=== PATIENT | female | born 1950 | race Caucasian/White ===

== ENCOUNTER 2016-04-23 23:33 | Inpatient (IN) | payer OTHER ==
[~2016-04-23] VITALS: Ht 91.4 cm; Wt 78.4 kg
[2016-04-23 23:49] VITALS: Ht 91.4 cm; Wt 78.4 kg
[2016-04-24] VITALS (7 sets, daily range): BP systolic 141–164; BP diastolic 69–95; PULSE 64–73; RESP 17–20
[2016-04-24] MEDS ORDERED: NITROGLYCERIN (SL) 0.4 MG TAB SL ONE (01:00)
[2016-04-24 01:22] LABS: BASOPHILS % 0.4 % (0.0-2.0); EOSINOPHILS # 0.1 10^3/ul (0.0-0.5); EOSINOPHILS % 1.3 % (0.0-7.0); HEMATOCRIT 37.9 % (37.0-47.0); HEMOGLOBIN 12.4 g/dl (12.0-16.0); LYMPHOCYTES # 2.3 10^3/ul (0.8-2.9); LYMPHOCYTES % 38.8 % (15.0-51.0); MEAN CORPUSCULAR HGB CONC 32.7 g/dl (32.0-37.0); MEAN CORPUSCULAR VOLUME 79.6 fl (82.0-101.0); MEAN PLATELET VOLUME 13.5 fl (7.4-10.4); MONOCYTE # 0.5 10^3/ul (0.3-0.9); MONOCYTES % 8.4 % (0.0-11.0); NEUTROPHIL # 3.1 10^3/ul (1.6-7.5); NEUTROPHILS % 51.1 % (39.0-77.0); PLATELET COUNT 163 10^3/UL (140-440); RED BLOOD COUNT 4.76 10^6/ul (4.20-5.40); RED CELL DISTRIBUTION WIDTH 16.9 % (11.5-14.5); UNCORRECTED WBC 6.1 10^3/ul (4.8-10.8); WHITE BLOOD COUNT 6.1 10^3/ul (4.8-10.8)
[2016-04-24 01:27] LABS: CONDITION 1; LH ANALYZER COMMENTS 1; SUSPECT 1
[2016-04-24 01:31] LABS: CHLORIDE 102 mmol/L (97-110); INR 1.09; PARTIAL THROMBOPLASTIN TIME 28.6 Sec (25.0-35.0); POTASSIUM 3.9 mmol/L (3.5-5.1); PROTIME 14.1 Sec (12.2-14.2); PT RATIO 1.1; SODIUM 142 mmol/L (135-144)
[2016-04-24 01:34] LABS: ANION GAP 14 (8-16); BLOOD UREA NITROGEN 20 mg/dl (7-20); CARBON DIOXIDE 30 mmol/L (21-31)
[2016-04-24 01:35] LABS: CALCIUM 9.1 mg/dl (8.4-10.2); GLUCOSE 95 mg/dl (70-220)
--- NOTE | 2016-04-24 01:53 | RADRPT ---
PROCEDURE: XR Chest. CLINICAL INDICATION: Chest pain TECHNIQUE: AP Portable chest. COMPARISON: No pertinent prior examinations were submitted for comparison. FINDINGS: There is mild cardiomegaly. The lungs are clear. The osseous structures are unremarkable. IMPRESSION: No acute findings. RPTAT: HIKT .Kobi Sellers MD, Date Time Electronically viewed and signed by .Kobi Sellers MD, on 04/24/2016 01:52 .T/
[2016-04-24 01:56] LABS: TROPONIN-I < 0.012 ng/ml (0.00-0.12)
[2016-04-24] MEDS ORDERED: ACETAMINOPHEN 325 MG TAB PO PRN ×2 (03:00→16:00)
[2016-04-24] MEDS ORDERED: ONDANSETRON 4 MG INJ IV PRN (03:00)
--- NOTE | 2016-04-24 03:03 | ERA ---
ER Documentation Chief Complaint Date/Time DATE: 04/24/16 TIME: 03:01 Chief Complaint squeeezing like chest pain x 2 days, intermittent pain HPI This is a 65-year-old female presents to the emergency room for evaluation of chest pain. The patient had intermittent chest pain for 2 days which she describes as an achy pain as squeezing like sensation in the center of her chest with radiation into her left arm. The patient does state that she has a history of high blood pressure, high cholesterol and cancer. The patient denies any palpitations or shortness of breath. She denies any aggravating or relieving factors for her pain and came to the ER today for evaluation. ROS All systems reviewed and are negative except as per history of present illness. Allergies Allergies: Coded Allergies: No Known Allergy (Unverified , 04/23/16) PMhx/Soc History of Surgery: Yes Hx Cardiac Disorders: Yes (htn, high cholesterol) Hx Miscellaneous Medical Probl: Yes (breast CA w/ chemo resolved 8 yrs ago) Hx Alcohol Use: No Hx Substance Use: No Hx Tobacco Use: No Smoking Status: Unknown if ever smoked Physical Exam Vitals Vital Signs Date Time Temp Pulse Resp B/P Pulse Ox O2 Delivery O2 Flow Rate FiO2 04/23/16 23:49 97.8 81 20 149/78 100 Physical Exam INITIAL VITAL SIGNS: Reviewed by me GENERAL: The patient is well developed and appropriate for usual state of health in no apparent distress HEENT: Pupils equal, round, and reactive to light. EOMI. There is no scleral icterus. NECK: C-spine is soft and supple, there is no meningismus. There is no cervical lymphadenopathy. LUNGS: Clear to auscultation bilaterally. There are no rales, wheezes or rhonchi. HEART: Regular rate and rhythm, no murmurs, clicks, rubs or gallops. ABDOMEN: Soft, non-tender, non-distended. There are bowel sounds in all four quadrants. No rebound or guarding. EXTREMITIES: There is no peripheral cyanosis or edema. No focal swelling or erythema. NEUROLOGICAL: The patient moves all four extremities with 5/5 strength. Cranial nerves II - XII are intact. Normal gait. Alert and oriented SKIN: There is no apparent rash or petechiae. HEME/LYMPHATIC: There is no evidence of excessive bruising or lymphedema. PSYCHIATRIC: The patient does not appear anxious or depressed. Result Diagram: 04/24/1610104/24/16 0102 Results 24 hrs Laboratory Tests Test 04/24/16 01:02 Activated Partial Thromboplast Time 28.6Sec Anion Gap 14 Basophils # 0.010^3/ul Basophils % 0.4% Blood Morphology Comment Blood Urea Nitrogen 20mg/dl Calcium Level 9.1mg/dl Carbon Dioxide Level 30mmol/L Chloride Level 102mmol/L Creatinine 0.70mg/dl Eosinophils # 0.110^3/ul Eosinophils % 1.3% Glucose Level 95mg/dl Hematocrit 37.9% Hemoglobin 12.4g/dl INR International Normalized Ratio 1.09 Lymphocytes # 2.310^3/ul Lymphocytes % 38.8% Mean Corpuscular Hemoglobin 26.0pg Mean Corpuscular Hemoglobin Concent 32.7g/dl Mean Corpuscular Volume 79.6fl Mean Platelet Volume 13.5fl Monocytes # 0.510^3/ul Monocytes % 8.4% Neutrophils # 3.110^3/ul Neutrophils % 51.1% Nucleated Red Blood Cells # 0.010^3/ul Nucleated Red Blood Cells % 0.0/100WBC Platelet Count 99670^3/UL Potassium Level 3.9mmol/L Prothrombin Time 14.1Sec Prothrombin Time Ratio 1.1 Red Blood Count 4.7610^6/ul Red Cell Distribution Width 16.9% Sodium Level 142mmol/L Troponin I < 0.012ng/ml White Blood Count 6.110^3/ul Current Medications Medications (Trade) Dose Ordered Sig/Neelima Route PRN Reason Start Time Stop Time Status Last Admin Dose Admin Nitroglycerin (Nitroglycerin (Sl Tab) 0.4 Mg) 1 tab ONCE ONCE SL 04/24/16 01:00 04/24/16 01:01 DC 04/24/16 01:04 Procedures/MDM EKG: Rate/Rhythm: [Normal Sinus Rhythm] QRS, ST, T-waves: [No changes consistent w/ acute ischemia] Impression: [No evidence of ischemia or arrhythmia] Chest X-ray 1V Interpreted by me: Soft Tissue: No acute abnormalities Bones: No acute abnormalities Mediastinum/Cardiac Silhouette/Lungs: [No acute abnormalities] This 65-year-old female presents to the emergency room for evaluation of chest pain. This patient had a troponin drawn which was normal, EKG which is nonischemic. Chest x-ray is normal. However, this patient does have history of hypertension, hyperlipidemia, and given her age she will be placed in for admission at this time. Her pulse ox is 100% on room air, her pulse is 61 bpm and my suspicion for PE is low at this time given her vital signs. She will be placed in for admission to a telemetry floor under the care of her panel physician, Dr. Sharpe Departure Diagnosis: Primary Impression: Chest pain Condition: Stable BOBBY COLBERT DO Apr 24, 2016 03:03
[2016-04-24] MEDS ORDERED: LISI10TA2 PO (05:04)
[2016-04-24] MEDS ORDERED: CARV6.2579 PO (05:04)
[2016-04-24] MEDS ORDERED: SIMV10TA6 PO (05:04)
[2016-04-24] MEDS ORDERED: ASPI-535 PO (05:04)
[2016-04-24] MEDS ORDERED: FURO20TA3 PO (05:04)
[2016-04-24] MEDS ORDERED: morphine 2 MG INJ IV PRN (05:30)
[2016-04-24] MEDS ORDERED: NITROGLYCERIN (SL) 0.4 MG TAB SL PRN (05:30)
[2016-04-24] MEDS ORDERED: FUROSEMIDE 20 MG TAB PO SCH (06:00)
--- NOTE | 2016-04-24 07:26 | HP ---
DATE OF ADMISSION: 04/24/2016 CHIEF COMPLAINT: Chest pain. IDENTIFICATION: The patient is a 65-year-old female with a history of hypertension, dyslipidemia, a nd breast cancer status post chemo 8 years ago who presented to the emergency department with chest pain. The chest pain is located in the mid chest as well as left-sided with radiation to the left a rm and described as far pain and tightness. It has been going on for 2 days. She denied any associ ated shortness of breath, nausea, vomiting, or diaphoresis. When the patient presented to the ER, blood pressure was 149/78, heart rate 81, respiratory rate 20, temperature 97.8, oxygen saturation 100% on room air. Her CBC and BMP are within normal limits, an d first troponin is negative. EKG with normal sinus rhythm with no ST-T wave abnormalities. She wa s given nitroglycerin, Tylenol, and Zofran while she was in the ER. REVIEW OF SYSTEMS: A 12-point review was performed and negative except as mentioned in HPI. PAST MEDICAL HISTORY: As per HPI. PAST SURGICAL HISTORY: Denies. SOCIAL HISTORY: Denied a history of tobacco, alcohol, or illicit drug use. ALLERGIES: NO KNOWN DRUG ALLERGIES. HOME MEDICATIONS: 1. Coreg. 2. Lisinopril. 3. Zocor. 4. Aspirin. 5. Lasix. PHYSICAL EXAMINATION: VITAL SIGNS: Stable. GENERAL: No acute distress, looks comfortable, answering questions appropriately, able to speak in full sentences. HEENT: No obvious head deformity. Pupils are reactive to light. Extraocular muscles intact. CARDIOVASCULAR: Regular rate and rhythm. No extra sounds. LUNGS: Clear. ABDOMEN: Soft, nontender, nondistended. Positive bowel sounds. EXTREMITIES: No edema. NEUROLOGIC: No focal deficits. LABORATORY: CBC and BMP are within normal limits. First troponin is negative. IMAGING: Chest x-ray with no acute findings. IMPRESSION 1. Chest pain, need to rule out acute coronary syndrome. 2. History of hypertension. 3. History of dyslipidemia. 4. History of breast cancer status post chemo 8 years ago. PLAN: Admit to telemetry unit. Trend troponin. We will obtain a 2D echo and cardiology consult. We will continue her home medications which include ISMA inhibitor, beta analilia, statin, and aspirin . She will also receive as needed nitro and morphine and will be placed on oxygen. We will check a n A1c and fasting lipids and TSH in the morning. For her breast cancer history, she is status post chemo 8 years ago, and she will follow up as an outpatient when discharged. Further workup and management per clinical course. Dictated By: JESSIE PANCHAL/KELLY Conf#: [id number] DID#: [id number]
[2016-04-24 08:20] LABS: CREATINE KINASE 122 IU/L (23-200)
[2016-04-24 08:28] LABS: CK-MB 1.32 ng/ml (0.0-2.4)
[2016-04-24 08:30] LABS: CHOL/HDL RATIO 3.1 RATIO
[2016-04-24 08:34] LABS: TROPONIN-I < 0.012 ng/ml (0.00-0.12)
[2016-04-24 08:51] LABS: THYROID STIMULATING HORMONE 2.68 MIU/L (0.465-4.680)
[2016-04-24] MEDS ORDERED: LISINOPRIL 10 MG TAB PO SCH (09:00)
[2016-04-24] MEDS ORDERED: HEPARIN 5,000 UNIT/0.5 ML SYG SC SCH (09:00)
[2016-04-24] MEDS ORDERED: ASPIRIN (EC) 81 MG TAB PO SCH (09:00)
[2016-04-24 14:25] LABS: CREATINE KINASE 111 IU/L (23-200)
[2016-04-24 14:33] LABS: CK-MB 0.89 ng/ml (0.0-2.4)
[2016-04-24 14:36] LABS: TROPONIN-I < 0.012 ng/ml (0.00-0.12)
--- NOTE | 2016-04-24 16:03 | PDOCDIS ---
Discharge Instructions CONDITION Patient Condition: Good HOME CARE INSTRUCTIONS: Special Diet: cardiac ACTIVITY: Activity Restrictions: No Restrictions FOLLOW UP/APPOINTMENTS Appointments Follow up with Dr. Miguel in 1-2 weeks ANAID HERNANDEZ MD Apr 24, 2016 16:03
[2016-04-24] MEDS ORDERED: ATORVASTATIN 10 MG TAB PO SCH (21:00)
--- NOTE | 2016-04-25 11:11 | DS ---
DATE OF ADMISSION: 04/24/2016 DATE OF DISCHARGE: 04/24/2016 PLASTIC TOOL MAKER: None. CHIEF COMPLAINT: Atypical chest pain. DISCHARGE DIAGNOSIS: 1. Atypical chest pain, acute coronary syndrome was ruled out with negative troponin, EKG did not s how any sign of ischemia. 2. Essential hypertension, well controlled on carvedilol and lisinopril. 3. Dyslipidemia. Continue simvastatin. MEDICATIONS: 1. Aspirin 81 mg. 2. Coreg 6.25 mg. 3. Lasix 20 mg. 4. Lisinopril 10 mg. 5. Simvastatin 10 mg. ALLERGIES: NO KNOWN DRUG ALLERGIES. DIET: Cardiac diet. LABORATORIES: Troponin negative x3, triglycerides 73, total cholesterol 175, LDL 104, HDL 56. TSH 2.68. HOSPITAL COURSE: This is a pleasant 65-year-old female with past medical history o f hypertension, dyslipidemia, hypertension, who presents to [facility] secondary t o having chest discomfort, left sided, with radiation to the left arm, discomfort pain and tightness . The patient stated that this has been going on for 2 days. It is not associated with any nausea, vomiting, diarrhea, or diaphoresis. The patient has a history of breast cancer status post chemoth erapy 8 years ago. In the ER, blood pressure was found to be 149/78, with a heart rate 81, respirat ion 20, ____ 97.8, oxygen saturation 100%. EKG showed normal sinus rhythm. No ST-T wave abnormalit ies. She was tried nitroglycerin and Tylenol, aspirin; was admitted to telemetry floor. Serial tro ponin was evaluated, although found to be negative. The patient was continued on aggressive medical management. This morning, patient is asymptomatic without any chest pain, has been able to tolerat e oral intake, has been able to ambulate without any difficulty. There is no sign of ischemia on EK G. Patient is to be followed up by Dr. Miguel, packer denture, as outpatient. At this time, I have s et up patient with case packer and sealer ____ follow up with Dr. Miguel, cardiology, in 1 to 2 weeks for a 2D echocardiogram and Lexiscan Cardiolite stress test. CONDITION AT TIME OF DISCHARGE: Stable. Dictated By: ANAID MCCLENDON/KELLY Conf#: [id number] DID#: [id number] CC: [facility]; JESSIE BETANCUR MD;*[facility]
== END 2016-04-24 16:00 | disposition home or self-care (01) | DRG 313 ==
LOC: E/R 23:33 → MS4 04-24 02:59
PROVIDERS: ADMIT Internal Medicine; ATTEND Internal Medicine
DX: R07.89 Other chest pain (principal); I10 Essential (primary) hypertension; E78.5 Hyperlipidemia, unspecified; Z85.3 Personal history of malignant neoplasm of breast; Z92.21 Personal history of antineoplastic chemotherapy
CPT/HCPCS: 36415; 71010; 80048; 80061; 82550; 82553; 83036; 84443; 84484; 85025; 85610; 85730; 93005

== ENCOUNTER 2016-12-23 17:32 | Inpatient (IN) | payer OTHER ==
[~2016-12-23] VITALS: Ht 160 cm; Wt 79.2 kg
[~2016-12-23 17:32] MED LIST: ASPI-535 PO; CARV6.2579 PO; FURO20TA3 PO; LISI10TA2 PO; SIMV10TA6 PO
[2016-12-23] MEDS ORDERED: ASPIRIN 81 MG TAB PO STA (17:50)
[2016-12-23] MEDS ORDERED: NITROGLYCERIN 2% 1 GM OINT PKT TD STA (17:50)
[2016-12-23 17:55] VITALS: TEMP 97.6
[2016-12-23] MEDS ORDERED: NITROGLYCERIN (SL) 0.4 MG TAB SL PRN ×2 (18:00→19:30)
[2016-12-23] MEDS ORDERED: LABETALOL HCL 20MG INJ IV ONE (18:00)
[2016-12-23 18:39] LABS: ABNORMAL IP MESSAGE 1; HEMATOCRIT 40.4 % (37.0-47.0); HEMOGLOBIN 12.8 g/dl (12.0-16.0); MEAN CORPUSCULAR HEMOGLOBIN 26.8 pg (29.0-33.0); MEAN CORPUSCULAR HGB CONC 31.7 g/dl (32.0-37.0); MEAN CORPUSCULAR VOLUME 84.7 fl (82.0-101.0); MEAN PLATELET VOLUME 13.4 fl (7.4-10.4); PLATELET COUNT 167 10^3/UL (140-415); RED BLOOD COUNT 4.77 10^6/ul (4.20-5.40); RED CELL DISTRIBUTION WIDTH 15.6 % (11.5-14.5); WHITE BLOOD COUNT 5.6 10^3/ul (4.8-10.8)
[2016-12-23 18:41] LABS: POSITIVE DIFF @See below
--- NOTE | 2016-12-23 18:41 | RADRPT ---
PROCEDURE: XR Chest. CLINICAL INDICATION: chest pain TECHNIQUE: Single AP view of the chest were obtained COMPARISON: 04/24/2016 FINDINGS: The heart and mediastinum are within normal limits. The pulmonary vasculature are unremarkable. The aorta demonstrates atherosclerotic calcifications. There is no lung consolidation, pleural effusio n or pneumothorax. Degenerative changes are seen within the thoracic spine. There is no acute osse ous abnormality. IMPRESSION: No acute disease. RPTAT: AA .Benjamin Kline MD, Date Time Electronically viewed and signed by .Benjamin Kline MD, on 12/23/2016 18:41 .J/
[2016-12-23 18:44] LABS: ANION GAP 12 (8-16); BLOOD UREA NITROGEN 17 mg/dl (7-20); CALCIUM 9.4 mg/dl (8.4-10.2); CARBON DIOXIDE 27 mmol/L (21-31); CHLORIDE 106 mmol/L (97-110); CREATININE 0.98 mg/dl (0.44-1.00); GLUCOSE 92 mg/dl (70-220); POTASSIUM 3.7 mmol/L (3.5-5.1); SODIUM 141 mmol/L (135-144)
[2016-12-23 18:53] LABS: TROPONIN-I < 0.012 ng/ml (0.00-0.12)
[2016-12-23 19:01] LABS: BASOPHILS % 0.7 % (0.0-2.0); EOSINOPHILS # 0.1 10^3/ul (0.0-0.5); EOSINOPHILS % 1.3 % (0.0-7.0); LYMPHOCYTES # 2.4 10^3/ul (0.8-2.9); LYMPHOCYTES % 43.2 % (15.0-51.0); MONOCYTE # 0.5 10^3/ul (0.3-0.9); MONOCYTES % 8.8 % (0.0-11.0); NEUTROPHIL # 2.5 10^3/ul (1.6-7.5); NEUTROPHILS % 45.3 % (39.0-77.0)
[2016-12-23] MEDS ORDERED: MAGNESIUM HYDROXIDE 30ML CUP PO PRN (19:30)
[2016-12-23] MEDS ORDERED: morphine 2 MG INJ IV PRN (19:30)
[2016-12-23] MEDS ORDERED: DOCUSATE SODIUM 100 MG CAP PO PRN (19:30)
[2016-12-23] MEDS ORDERED: ONDANSETRON 4 MG INJ IV PRN ×2 (19:30)
[2016-12-23] MEDS ORDERED: hydrALAzine 20 MG INJ IV PRN (19:30)
[2016-12-23] MEDS ORDERED: ALBUTEROL/IPRATROPIUM (NEB) 3 ML AMP HHN PRN (19:30)
[2016-12-23] MEDS ORDERED: LORAZEPAM 2 MG INJ IV PRN (19:30)
[2016-12-23] MEDS ORDERED: ACETAMINOPHEN 325 MG TAB PO PRN ×2 (19:30)
[2016-12-23] MEDS ORDERED: NACL 0.9% 3 ML SYG IV SCH (19:30)
[2016-12-23] MEDS ORDERED: HYDROCODONE/APAP (5/325) TAB PO PRN (19:30)
[2016-12-23] MEDS ORDERED: NA PHOSPHATE/BIPHOS 133 ML ENEMA PR PRN (19:30)
--- NOTE | 2016-12-23 20:24 | ERA ---
ER Documentation Chief Complaint Date/Time DATE: 12/23/16 TIME: 20:21 Chief Complaint crushing chest pain x 2 hrs, radiating to the left arm HPI Patient is a 66-year-old female with hypertension patient is a chest pain for the past 3 hours. It is a midsternal chest pain and she feels like someone is "sitting on my chest". The symptoms are constant. She has had no treatment as of yet. She says that she does not currently have a primary doctor. She has not been taking her blood pressure medicine for approximately 1 month. ROS All systems reviewed and are negative except as per history of present illness. Medications Home Meds Reported Medications Aspirin Ec (Aspir 81) 81 Mg Tablet.dr, 81 MG PO DAILY, #30 TAB 04/24/16 Simvastatin (Simvastatin) 10 Mg Tablet, 10 MG PO QHS, #30 TAB 04/24/16 Furosemide* (Furosemide*) 20 Mg Tablet, 20 MG PO DAILY, #60 TAB 04/24/16 Carvedilol* (Carvedilol*) 6.25 Mg Tablet, 6.25 MG PO BID, #60 TAB 04/24/16 Lisinopril* (Lisinopril*) 10 Mg Tablet, 10 MG PO DAILY, #30 TAB 04/24/16 Allergies Allergies: Coded Allergies: No Known Allergy (Unverified , 12/23/16) PMhx/Soc History of Surgery: Yes (right breast mastectomy, fibroids removed) Anesthesia Reaction: No Hx Neurological Disorder: No Hx Respiratory Disorders: No Hx Cardiac Disorders: Yes (HTN) Hx Psychiatric Problems: No Hx Miscellaneous Medical Probl: Yes (BREAST CA W/ CHEMO 8 YEARS AGO, HIGH CHOLESTROL) Hx Alcohol Use: No Hx Substance Use: No Hx Tobacco Use: No Smoking Status: Never smoker FmHx Family History: coronary disease Physical Exam Vitals Vital Signs Date Time Temp Pulse Resp B/P Pulse Ox O2 Delivery O2 Flow Rate FiO2 12/23/16 17:55 97.6 71 18 165/88 97 Room Air 12/23/16 17:55 Nasal Cannula 12/23/16 17:40 97.6 79 18 203/90 97 Physical Exam Const: Mild distress Head: Atraumatic Eyes: Normal Conjunctiva ENT: Normal External Ears, Nose and Mouth. Neck: Full range of motion..~ No meningismus. Resp: Clear to auscultation bilaterally Cardio: Regular rate and rhythm, no murmurs Abd: Soft, non tender, non distended. Normal bowel sounds Skin: No petechiae or rashes Back: No midline or flank tenderness Ext: No cyanosis, or edema Neur: Awake and alert Psych: Normal Mood and Affect Result Diagram: 12/23/16180912/23/161809 Results 24 hrs Laboratory Tests Test 12/23/16 18:10 White Blood Count 5.610^3/ul Red Blood Count 4.7710^6/ul Hemoglobin 12.8g/dl Hematocrit 40.4% Mean Corpuscular Volume 84.7fl Mean Corpuscular Hemoglobin 26.8pg Mean Corpuscular Hemoglobin Concent 31.7g/dl Red Cell Distribution Width 15.6% Platelet Count 08404^3/UL Mean Platelet Volume 13.4fl Neutrophils % 45.3% Lymphocytes % 43.2% Monocytes % 8.8% Eosinophils % 1.3% Basophils % 0.7% Nucleated Red Blood Cells % 0.0/100WBC Neutrophils # 2.510^3/ul Lymphocytes # 2.410^3/ul Monocytes # 0.510^3/ul Eosinophils # 0.110^3/ul Basophils # 0.010^3/ul Nucleated Red Blood Cells # 0.010^3/ul Sodium Level 141mmol/L Potassium Level 3.7mmol/L Chloride Level 106mmol/L Carbon Dioxide Level 27mmol/L Anion Gap 12 Blood Urea Nitrogen 17mg/dl Creatinine 0.98mg/dl Glucose Level 92mg/dl Calcium Level 9.4mg/dl Troponin I < 0.012ng/ml Current Medications Medications (Trade) Dose Ordered Sig/Neelima Route PRN Reason Start Time Stop Time Status Last Admin Dose Admin Aspirin (Aspirin) 162 mg ONCE STAT PO 12/23/16 17:50 12/23/16 17:51 DC 12/23/16 17:55 Nitroglycerin (Nitroglycerin 2% Oint) 1 inch ONCE STAT TD 12/23/16 17:50 12/23/16 17:51 DC 12/23/16 17:55 Nitroglycerin (Nitroglycerin (Sl Tab) 0.4 Mg) 1 tab Q5M UP TO 3 DOSES PRN SL CHEST PAIN 12/23/16 18:00 12/23/16 17:55 Labetalol HCl (Labetalol) 20 mg ONCE ONCE IV 12/23/16 18:00 12/23/16 18:01 DC Ondansetron HCl (Zofran Inj) 4 mg ER BRIDGE PRN IV NAUSEA AND/OR VOMITING 12/23/16 19:30 12/24/16 19:29 Acetaminophen (Tylenol Tab) 650 mg ER BRIDGE PRN PO MILD PAIN/FEVER 12/23/16 19:30 12/24/16 19:29 IV Flush (NS 3 ml) 3 ml PER PROTOCOL IV 12/23/16 19:30 UNV Ondansetron HCl (Zofran Inj) 4 mg Q6H PRN IV NAUSEA AND/OR VOMITING 12/23/16 19:30 UNV Acetaminophen (Tylenol Tab) 650 mg Q6H PRN PO PAIN LEVEL 1-3 OR FEVER 12/23/16 19:30 UNV Acetaminophen/ Hydrocodone Bitart ([place] (5/325)) 1 tab Q6H PRN PO MODERATE PAIN LEVEL 4-6 12/23/16 19:30 UNV Morphine Sulfate (morphine) 2 mg Q4H PRN IV SEVERE PAIN LEVEL 7-10 12/23/16 19:30 UNV Docusate Sodium (Colace) 100 mg Q12H PRN PO CONSTIPATION 12/23/16 19:30 UNV Magnesium Hydroxide (Milk Of Mag) 30 ml DAILY PRN PO CONSTIPATION 12/23/16 19:30 UNV Sodium Biphosphate/ Sodium Phosphate (Fleet Enema) 133 ml DAILY PRN [place] CONSTIPATION 12/23/16 19:30 UNV Heparin Sodium (Porcine) 5000 unit 5,000 unit Q12 SC 12/23/16 21:00 UNV Sodium Chloride (1/2 NS) 1,000 ml @ 75 mls/hr [id number] IV 12/23/16 19:15 UNV Lorazepam (Ativan) 0.5 mg Q6H PRN IV ANXIETY 12/23/16 19:30 UNV Albuterol/ Ipratropium (Duoneb) 3 ml Q4H RESP THERAPY PRN HHN SHORTNESS OF BREATH 12/23/16 19:30 UNV Hydralazine HCl (Apresoline) 10 mg Q6H PRN IV ELEVATED BLOOD PRESSURE 12/23/16 19:30 UNV Nitroglycerin (Nitroglycerin (Sl Tab) 0.4 Mg) 1 tab Q5M PRN SL ANGINA 12/23/16 19:30 UNV Aspirin (Ecotrin) 325 mg DAILY PO 12/24/16 09:00 UNV Aspirin (Halfprin) 81 mg DAILY PO 12/24/16 09:00 UNV Carvedilol (Coreg) 6.25 mg BID PO 12/23/16 21:00 UNV Furosemide (Lasix) 20 mg DAILY PO 12/24/16 09:00 UNV Lisinopril (Zestril) 10 mg DAILY PO 12/24/16 09:00 UNV Miscellaneous Information 10 mg QHS PO 12/23/16 21:00 UNV Procedures/MDM EKG #1 read by me: Rate/Rhythm: Regular rate and rhythm at a normal rate Intervals: Normal Impression: Sinus rhythm with ST depressions diffusely but no ST elevations EKG #2 read by me: Rate/Rhythm: Regular rate and rhythm at a normal rate Intervals: Normal Impression: No evidence of ischemia or arrhythmia Chest x-ray negative per radiology. Patient is a 66-year-old female with hypertension who presents with chest pain. She had elevated blood pressure and was given labetalol 20 mg IV. She was also given aspirin nitroglycerin for her chest pain. I am concerned about the quality of the chest pain and I am concerned for acute coronary syndrome. I doubt pneumonia, pneumothorax, pulmonary embolism, or aortic dissection. The patient will be admitted to the care of Dr. Roldan from the panel team as she has [employer] insurance. Patient will be admitted to a telemetry bed. Critical Care: Time: 35 minutes excluding all billable procedures. Treatments/Evaluations: Close monitoring and treatment of unstable vital signs, cardiorespiratory, and neurologic status, while maintaining tight balance of fluid, respiratory, and cardiac interventions. Departure Diagnosis: Primary Impression: Hypertension Qualified Code: I10 - Essential hypertension Additional Impression: Chest pain Qualified Code: R07.9 - Chest pain, unspecified type Condition: LUNA Aguirre MD Dec 23, 2016 20:24
--- NOTE | 2016-12-23 20:47 | HP ---
DATE OF ADMISSION: 12/23/2016 CHIEF COMPLAINT: Chest pain. HISTORY OF PRESENT ILLNESS: A 66-year-old female, past medical history of breast cancer status post chemotherapy 8 years ago, hypertension, high cholesterol, who presents with chest pain. She says the chest pain has been going off and on for the last several months, but became worse this morning. She did not take any medicines to relieve her pain. She describes the pain as substernal in nature, but now radiating to her left arm. She also has some chest tightness and some mild shortness of breath. No headaches or dizziness. No loss of consciousness. No upper lower GI bleeding. No nausea, vomiting, fevers, chills or diarrhea or constipation. The patient was last here at our hospital on 04/24/2016. At that time, she had chest pain and ruled out for acute coronary syndrome and was sent home within 24 hours. When she arrived today to the ER she was found with hypertensive urgency, systolic blood pressure was 203/90 diastolic and she received labetalol in the ER, and blood pressure is improved now in the 160s range. PAST MEDICAL HISTORY: Above. ALLERGIES: NO KNOWN DRUG ALLERGIES. HOME MEDICATIONS: She takes Coreg 6.25 mg twice a day, Lisinopril 10 mg daily, simvastatin 10 mg bedtime, aspirin 81 mg daily, and furosemide 20 mg daily. PAST SURGICAL HISTORY: She has a history of right breast surgery in the past and also fibroid surgery in the past. SOCIAL HISTORY: Negative for smoking, drinking, or IV drug abuse. FAMILY HISTORY: Noncontributory. PHYSICAL EXAMINATION: VITAL SIGNS: Today, T-max 98.6, pulse is 64-79, respirations 18, blood pressure is about a 203-165 systolic over 90-88 diastolic, and satting at 97 percent room air. GENERAL: Patient lying in bed. Answers questions appropriately. No acute distress. HEENT: Pupils equal, round, react to light. Extraocular muscles intact. NECK: Supple. No thyromegaly. LUNGS: Clear to auscultation bilaterally. CARDIOVASCULAR: S1, S2 heard. No rubs, gallops. ABDOMEN: Soft, nontender, nondistended. Normal bowel sounds. No rebound or guarding. MUSCULOSKELETAL: No lower extremity bilaterally. NEUROLOGIC: No focal deficits. LABORATORY DATA: CBC is normal. Troponin is negative times 1. BMP is normal. Chest x-ray shows no acute disease. Initial EKG showed some questionable ST depressions. The repeat shows normal sinus rhythm. ASSESSMENT/PLAN: A 66-year-old female, past medical history of hypertension, high cholesterol, and breast cancer in the past who presents with chest pain, rule out acute coronary syndrome. 1. Chest pain. Admit patient to telemetry floor. Trend troponins, check them every 6 hours times 3. Put on morphine, oxygen, nitroglycerin and aspirin as well. Consider checking 2D echocardiogram. Check TSH, A1c, and lipid panel as well. 2. History of hypertensive urgency. Again blood pressure is improved. Continue home blood pressure medicines and hydralazine as well as needed for systolic greater than 160. 3. High cholesterol. Check lipid panel. 4. Deep venous thrombosis (DVT) prophylaxis. Heparin subcutaneous. Dictated By: Keron Roldan MD /angelia/kali /Document#: [id number]
[2016-12-23 20:52] VITALS: PULSE 72
[2016-12-23 21:00] VITALS: Ht 160 cm; Wt 79.2 kg
[2016-12-23] MEDS: HEPARIN 5,000 UNIT/0.5 ML VIAL SC SCH (21:31)
[2016-12-23] MEDS: SOD CHLORIDE 0.45% 1,000 ML IV SCH (21:33)
[2016-12-23] MEDS: LISINOPRIL 10 MG TAB PO SCH (21:33)
[2016-12-23] MEDS: ATORVASTATIN 10 MG TAB PO SCH (23:30)
[2016-12-24] VITALS (11 sets, daily range): BP systolic 137–167; BP diastolic 72–94; PULSE 59–75; RESP 17–20
[2016-12-24 01:32] LABS: CK-MB 1.25 ng/ml (0.0-2.4); TROPONIN-I 0.024 ng/ml (0.00-0.12)
[2016-12-24 03:52] LABS: ADD UMIC NO; UR ASCORBIC ACID NEGATIVE (NEGATIVE); UR BILIRUBIN (Dip) NEGATIVE (NEGATIVE); UR BLOOD (Dip) NEGATIVE (NEGATIVE); UR CLARITY CLEAR (CLEAR); UR COLOR COLORLESS (YELLOW); UR GLUCOSE (Dip) NEGATIVE (NEGATIVE); UR KETONES (Dip) NEGATIVE (NEGATIVE); UR LEUKOCYTE ESTERASE (Dip) NEGATIVE Leu/ul (NEGATIVE); UR NITRITE (Dip) NEGATIVE (NEGATIVE); UR SPECIFIC GRAVITY (Dip) 1.005 (1.003-1.030); UR TOTAL PROTEIN (Dip) NEGATIVE (NEGATIVE); UR UROBILINOGEN (Dip) NEGATIVE (NEGATIVE)
[2016-12-24] MEDS: FUROSEMIDE 20 MG TAB PO SCH (06:06)
[2016-12-24 06:18] LABS: ABNORMAL IP MESSAGE 1; HEMATOCRIT 40.1 % (37.0-47.0); HEMOGLOBIN 12.7 g/dl (12.0-16.0); MEAN CORPUSCULAR HEMOGLOBIN 27.1 pg (29.0-33.0); MEAN CORPUSCULAR HGB CONC 31.7 g/dl (32.0-37.0); MEAN CORPUSCULAR VOLUME 85.5 fl (82.0-101.0); RED BLOOD COUNT 4.69 10^6/ul (4.20-5.40); RED CELL DISTRIBUTION WIDTH 15.6 % (11.5-14.5); WHITE BLOOD COUNT 4.2 10^3/ul (4.8-10.8)
[2016-12-24 06:45] LABS: PLATELET COUNT 80 10^3/UL (140-415); POSITIVE DIFF @See below
[2016-12-24 06:52] LABS: CK-MB 1.11 ng/ml (0.0-2.4); TROPONIN-I 0.02 ng/ml (0.00-0.12)
[2016-12-24 06:54] LABS: CHOL/HDL RATIO 2.5 RATIO
[2016-12-24 07:05] LABS: CALCIUM 7.8 mg/dl (8.4-10.2); CREATININE 0.66 mg/dl (0.44-1.00); MAGNESIUM 1.7 mg/dl (1.7-2.5); PHOSPHORUS 3.7 mg/dl (2.5-4.9); POTASSIUM 3.3 mmol/L (3.5-5.1)
[2016-12-24 07:26] LABS: THYROID STIMULATING HORMONE 1.51 MIU/L (0.465-4.680)
[2016-12-24] MEDS ORDERED: ASPIRIN (EC) 325 MG TAB PO SCH (09:00)
[2016-12-24] MEDS ORDERED: LISINOPRIL 10 MG TAB PO SCH (09:00)
[2016-12-24 09:43] LABS: ANISOCYTOSIS 1+ (0-0); BURR CELLS 1+ (0-0); EOSINOPHILS % (M) 1 % (0-7); GIANT THROMBO% (M) 2 % (0-0); MONOCYTES % (M) 7 % (0-11); PLATELET ESTIMATE DECREASED; POIKILOCYTOSIS 1+ (0-0); POLYCHROMASIA 1+ (0-0); REACTIVE LYMPHOCYTES% (M) 7 % (0-0)
[2016-12-24] MEDS: ASPIRIN (EC) 81 MG TAB PO SCH (09:57)
[2016-12-24] MEDS: LISINOPRIL 10 MG TAB PO SCH ×2 (09:59→21:45)
[2016-12-24] MEDS: SOD CHLORIDE 0.45% 1,000 ML IV SCH ×2 (10:00→21:55)
[2016-12-24] MEDS: HEPARIN 5,000 UNIT/0.5 ML VIAL SC SCH ×2 (10:01→20:31)
[2016-12-24] MEDS ORDERED: POTASSIUM CHLORIDE (SR) 20 MEQ TAB PO STA ×2 (11:27→16:54)
--- NOTE | 2016-12-24 11:29 | PDOCDIS ---
Discharge Instructions CONDITION Patient Condition: Stable HOME CARE INSTRUCTIONS: Diet Instructions: Low Fat /Cholesterol ACTIVITY: Activity Restrictions: Slowly Increase Activity FOLLOW UP/APPOINTMENTS Follow-up Plan Please take your medications as prescribed. If you experience any further chest pain symptoms, please call 911, go to the ER, or call your primary care doctor. These follow-up with her regular doctor in the clinic in the next 1 week. JASON GONZALEZ Dec 24, 2016 11:29
--- NOTE | 2016-12-24 12:12 | DS ---
DATE OF ADMISSION: 12/23/2016 DATE OF DISCHARGE: 12/24/2016 HOSPITAL COURSE: The patient came in with chest pain symptoms. She had prior history of high cholesterol, hypertension and breast cancer with chemotherapy 9 years ago. She had been having substernal chest pain radiating to the arm, so she was admitted and ruled out for acute coronary syndrome, as her troponins were negative x3. Echocardiogram was performed, results are still pending by the time of discharge. Over the course of hospital stay, her chest pain symptoms improved. She had some mild chest tightness on day of discharge, but no chest pain. She was able to ambulate and tolerate a p.o. diet. Her vital signs were stable as well. Her cholesterol panel was normal. A1c was 5.9, and because she has ruled out for acute coronary syndrome, she will be discharged home today in improved condition. DISCHARGE MEDICATIONS: She will be sent with the following medications: 1. Aspirin 81 mg daily. 2. Coreg 6.25 mg b.i.d. 3. Lasix 20 mg p.o. daily. 4. Lisinopril 10 mg daily. 5. Simvastatin 10 mg at bedtime. FOLLOWUP: She will need to follow up with a regular doctor in clinic in next 1-2 weeks. FINAL DIAGNOSES: 1. Chest pain. Ruled out for acute coronary syndrome. 2. Essential hypertension. 3. High cholesterol. 4. History of breast cancer, status post chemotherapy 9 years ago. Time spent discharging the patient, 45 minutes. Dictated By: Keron Roldan MD /angelia/nabil /Document#: [id number]
--- NOTE | 2016-12-24 14:42 | RADRPT ---
Vent Rate: 66 bpm RR Interval: 0 msec NH Interval: 124 msec QRS Duration: 86 msec QT Interval: 458 msec QTC Interval: 480 msec P-R-T [place]: 46 - 9 - -71 degrees Normal sinus rhythm Nonspecific ST and T wave abnormality Prolonged QT Abnormal ECG Electronically Signed By: Calos Ware [id number]
--- NOTE | 2016-12-24 14:47 | RADRPT ---
Echocardiogram Report Patient Name: BRAULIO MONTELONGO Gender: Female Date: 1950 Study Date: 24-Dec-2016 Plastic Boat Patcher: Milad Caruso [facility] Location: 5540 Ref. Physician: JASON GONZALEZ Quality: Good Procedures: Transthoracic echocardiogram with complete 2D, M-Mode, and doppler examination. Indications: Chest Pain. 2D/M Mode Doppler Measurement Value Normal Ranges Measurement Value Normal Ranges LVIDd 2D 4.8 3.5 - 5.6 cm AV Peak Kareem 1.1 m/sec LVIDs 2D 4.1 2.1 - 4.1 cm AV Peak PG 4.7 mmHg LVPWd 2D 1.1 0.6 - 1.1 cm LVOT Peak Kareem 0.7 m/sec IVSd 2D 1.1 0.6 - 1.1 cm LVOT Peak PG 1.9 mmHg AoR Diam 2D 2.6 2.0 - 3.7 cm MV E Peak Kareem 0.8 m/sec EDV 2D 105.3 cm3 MV A Peak Kareem 0.2 m/sec ESV 2D 70.1 cm3 MV E/A 4.2 LA Dimen 2D 4.4 2.3 - 4.0 cm MV Decel Time 217 msec MV Decel Mifflin 4 MV E/A 4.2 TR Peak Kareem 2.5 m/sec TR Peak PG 24.8 mmHg RVSP 28.0 mmHg Findings Left Ventricle: Normal left ventricular cavity size. Mild concentric left ventricular hypertrophy. Moderate left ventricular systolic dysfunction. Ejection fraction is visually estimated at 35 %. Tissue Doppler/Mitral Doppler indices are consistent with pseudonormalization with mildly elevated left atrial pressure (Stage II diastolic dysfunction). Right Ventricle: Normal right ventricular size. Normal right ventricular systolic function. Left Atrium: There is mild enlargement of left atrium. Right Atrium: The right atrium is normal in size. Mitral Valve: Mitral valve leaflets appear mildly thickened. Mild mitral annular calcification. Mild to moderate mitral valve regurgitation. Aortic Valve: No significant aortic stenosis or insufficiency. Aortic cusps appear mildly calcified. Tricuspid Valve: Normal appearance of the tricuspid valve. Estimated peak PA systolic pressure 28 mmHg. There is mild tricuspid regurgitation. Pulmonic Valve: Pulmonic valve not well visualized. Pericardium: Normal pericardium with no significant pericardial effusion. Aorta: Normal aortic root. IVC: Normal size and normal respiratory collapse consistent with normal right atrial pressure. Conclusions 1.Normal left ventricular cavity size. Mild concentric left ventricular hypertrophy. Moderate left ventricular systolic dysfunction. Ejection fraction is visually estimated at 35 %. Tissue Doppler/Mitral Doppler indices are consistent with pseudonormalization with mildly elevated left atrial pressure (Stage II diastolic dysfunction). 2.Normal right ventricular size. Normal right ventricular systolic function. 3.There is mild enlargement of left atrium. 4.The right atrium is normal in size. 5.Mild to moderate mitral valve regurgitation. 6.Estimated peak PA systolic pressure 28 mmHg. There is mild tricuspid regurgitation. 7.No significant aortic stenosis or insufficiency. 8.Normal pericardium with no significant pericardial effusion. Electronically Signed By: Calos Ware 24-Dec-2016 14:47:05 -0700 Patient Name: BRAULIO MONTELONGO Study Date: 24-Dec-2016 [id number]
[2016-12-24] MEDS ORDERED: MAGNESIUM SULFATE 2 GM/50 ML 50 ML IVPB ONE (17:00)
--- NOTE | 2016-12-24 17:01 | CONS ---
Date/Time of Note Date/Time of Note DATE: 12/24/16 TIME: 16:56 Assessment/Plan Assessment/Plan Additional Assessment/Plan Chest pain Compensated systolic congestive heart failure Cardiomyopathy with ejection fraction 35% Hypertension -Echocardiogram with cardia myopathy with ejection fraction 35%. Patient is not sure if she had a history of known cardiopathy, but on review of medications , she is on "CHF meds". Serial cardiac enzymes remain negative, would continue aspirin and statin therapy if no contraindication, increase lisinopril to twice daily dosing. Will discuss with patient regarding nuclear cardiac perfusion study to be done as an inpatient or as an outpatient. Consultation Date/Type/Reason Admit Date/Time Dec 23, 2016 at 19:04 Type of Consultation: cv Reason for Consultation Chest pain and shortness of breath Hx of Present Illness This is a 66-year-old female who presents with symptoms of chest pain. Symptoms began yesterday while she was sitting on the couch. Pain was aching like and stabbing like in sensation. It was also intermittent shortness of breath. She is unclear if this was associated with food intake. This is happened to her in the past. She also complains of exertional shortness of breath going on for a number of months. She is under the care of outpatient cardiology and did not tolerate a treadmill stress test and is awaiting possible chemical stress test. She did have a repeat episode of chest discomfort today which occurred after eating as well as nausea and diarrhea. She denies any cough, dizziness or lightheadedness or palpitations. 12 point review of systems was performed with all pertinent positives and negatives mentioned above and all else is negative Past Medical History Cardiomyopathy Medical History: hypertension Past Surgical History Past Surgical Hx: other (Breast surgery) Family History Significant Family History: no pertinent family hx Social History Alcohol Use: none Smoking Status: Never smoker Other Social History Lives at home Exam/Review of Systems Vital Signs Vitals Vital Signs Date Time Temp Pulse Resp B/P Pulse Ox O2 Delivery O2 Flow Rate FiO2 12/24/16 16:40 61 12/24/16 16:02 98.6 18 167/90 99 12/23/16 20:30 Room Air Intake and Output 12/23/16 12/23/16 12/24/16 15:00 23:00 07:00 Intake Total 1000 ml Output Total 850 ml Balance 150 ml Exam No apparent distress Constitutional: alert, oriented Head: normocephalic Respiratory: other (Coarse breath sounds bilaterally, no wheezing) Cardiovascular: other (S1-S2 heard), regular rate and rhythm, systolic murmur Gastrointestinal: bowel sounds, non-tender, soft Extremities: other (No edema) Results Result Diagram: 12/24/16 0556 12/24/16 0556 Results 24 hrs Laboratory Tests Test 12/23/16 17:55 12/23/16 18:10 12/24/16 00:25 12/24/16 03:00 Free Thyroxine 0.86 White Blood Count 5.6 Red Blood Count 4.77 Hemoglobin 12.8 Hematocrit 40.4 Mean Corpuscular Volume 84.7 Mean Corpuscular Hemoglobin 26.8 L Mean Corpuscular Hemoglobin Concent 31.7 L Red Cell Distribution Width 15.6 H Platelet Count 167 Mean Platelet Volume 13.4 H Neutrophils % 45.3 Lymphocytes % 43.2 Monocytes % 8.8 Eosinophils % 1.3 Basophils % 0.7 Nucleated Red Blood Cells % 0.0 Neutrophils # 2.5 Lymphocytes # 2.4 Monocytes # 0.5 Eosinophils # 0.1 Basophils # 0.0 Nucleated Red Blood Cells # 0.0 Sodium Level 141 Potassium Level 3.7 Chloride Level 106 Carbon Dioxide Level 27 Anion Gap 12 Blood Urea Nitrogen 17 Creatinine 0.98 Glucose Level 92 Calcium Level 9.4 Troponin I < 0.012 0.024 Creatine Kinase 78 Creatine Kinase Index 1.6 Creatinine Kinase MB (Mass) 1.25 Urine Color COLORLESS Urine Clarity CLEAR Urine pH 6.0 Urine Specific [place] 1.005 Urine Ketones NEGATIVE Urine Nitrite NEGATIVE Urine Bilirubin NEGATIVE Urine Urobilinogen NEGATIVE Urine Leukocyte Esterase NEGATIVE Urine Hemoglobin NEGATIVE Urine Glucose NEGATIVE Urine Total Protein NEGATIVE Test 12/24/16 05:56 White Blood Count 4.2 #L Red Blood Count 4.69 Hemoglobin 12.7 Hematocrit 40.1 Mean Corpuscular Volume 85.5 Mean Corpuscular Hemoglobin 27.1 L Mean Corpuscular Hemoglobin Concent 31.7 L Red Cell Distribution Width 15.6 H Platelet Count 80 #L Mean Platelet Volume Neutrophils % Segmented Neutrophils % (Manual) 44 Lymphocytes % Lymphocytes % (Manual) 42 Reactive Lymphocytes % (Manual) 7 H Monocytes % Monocytes % (Manual) 7 Eosinophils % Eosinophils % (Manual) 1 Basophils % Nucleated Red Blood Cells % 0.0 Neutrophils # Absolute Lymphocytes (Manual) 1.7 Lymphocytes # Reactive Lymphocytes # 0.2 H Monocytes # Absolute Monocytes (Manual) 0.2 L Eosinophils # Basophils # Nucleated Red Blood Cells # Platelet Estimate DECREASED Giant Platelets 2 H Platelet Morphology Comment @See below Polychromasia 1+ Poikilocytosis 1+ Anisocytosis 1+ Sodium Level 133 L Potassium Level 3.3 L Chloride Level 105 Carbon Dioxide Level 22 Anion Gap 9 Blood Urea Nitrogen 11 Creatinine 0.66 Glucose Level 87 Hemoglobin A1c 5.9 Calcium Level 7.8 L Phosphorus Level 3.7 Magnesium Level 1.7 Creatine Kinase 66 Creatine Kinase Index 1.7 Creatinine Kinase MB (Mass) 1.11 Troponin I 0.020 Triglycerides Level 47 Cholesterol Level 131 LDL Cholesterol, Calculated 70 HDL Cholesterol 52 Cholesterol/HDL Ratio 2.5 Thyroid Stimulating Hormone (TSH) 1.510 Medications Medications Current Medications Ondansetron HCl (Zofran Inj) 4 mg Q6H PRN IV NAUSEA AND/OR VOMITING; Start at 19:30 Acetaminophen (Tylenol Tab) 650 mg Q6H PRN PO PAIN LEVEL 1-3 OR FEVER Last administered on 12/23/16 21:28; Admin Dose 650 MG; Start 12/23/16 at 19:30 Acetaminophen/ Hydrocodone Bitart ([place] (5/325)) 1 tab Q6H PRN PO MODERATE PAIN LEVEL 4-6; Start 12/23/16 at 19:30 Morphine Sulfate (morphine) 2 mg Q4H PRN IV SEVERE PAIN LEVEL 7-10; Start 12/23 at 19:30 Docusate Sodium (Colace) 100 mg Q12H PRN PO CONSTIPATION; Start 12/23/16 at 19: 30 Magnesium Hydroxide (Milk Of Mag) 30 ml DAILY PRN PO CONSTIPATION; Start at 19:30 Sodium Biphosphate/ Sodium Phosphate (Fleet Enema) 133 ml DAILY PRN [place] CONSTIPATION; Start 12/23/16 at 19:30 Heparin Sodium (Porcine) 5000 unit 5,000 unit Q12 SC Last administered on 10:01; Admin Dose 5,000 UNIT; Start 12/23/16 at 21:00 Sodium Chloride (1/2 NS) 1,000 ml @ 75 mls/hr [id number] IV Last administered on 12/24/16 10:00; Admin Dose 75 MLS/HR; Start 12/23/16 at 19:15 Lorazepam (Ativan) 0.5 mg Q6H PRN IV ANXIETY; Start 12/23/16 at 19:30 Hydralazine HCl (Apresoline) 10 mg Q6H PRN IV ELEVATED BLOOD PRESSURE; Start at 19:30 Nitroglycerin (Nitroglycerin (Sl Tab) 0.4 Mg) 1 tab Q5M PRN SL ANGINA; Start at 19:30 Aspirin (Halfprin) 81 mg DAILY PO Last administered on 12/24/16 09:57; Admin Dose 81 MG; Start 12/24/16 at 09:00 Carvedilol (Coreg) 6.25 mg BID PO Last administered on 12/24/16 09:58; Admin Dose 6.25 MG; Start 12/23/16 at 21:00 Furosemide (Lasix) 20 mg DAILY@06 PO Last administered on 12/24/16 06:06; Admin Dose 20 MG; Start 12/24/16 at 06:00 Atorvastatin Calcium (Lipitor) 10 mg DAILY@21 PO Last administered on 23:30; Admin Dose 10 MG; Start 12/23/16 at 22:00 Lisinopril (Zestril) 10 mg DAILY PO Last administered on 12/24/16 09:59; Admin Dose 10 MG; Start 12/23/16 at 21:30 Procedures Procedures ECG done yesterday demonstrates sinus rhythm at 66 bpm, QRS 86 ms, nonspecific ST abnormalities Calos Ware DO Dec 24, 2016 17:01
[2016-12-24] MEDS: ATORVASTATIN 10 MG TAB PO SCH (20:13)
[2016-12-25] VITALS (10 sets, daily range): BP systolic 132–188; BP diastolic 63–80; PULSE 56–73; RESP 18–19
[2016-12-25] MEDS: SOD CHLORIDE 0.45% 1,000 ML IV SCH ×2 (06:23→12:36)
[2016-12-25] MEDS: FUROSEMIDE 20 MG TAB PO SCH (06:23)
[2016-12-25 08:39] LABS: BASOPHILS % 0.2 % (0.0-2.0); EOSINOPHILS # 0.1 10^3/ul (0.0-0.5); EOSINOPHILS % 1.3 % (0.0-7.0); HEMATOCRIT 45.4 % (37.0-47.0); LYMPHOCYTES % 41.9 % (15.0-51.0); MEAN CORPUSCULAR HEMOGLOBIN 26.2 pg (29.0-33.0); MEAN CORPUSCULAR HGB CONC 30.8 g/dl (32.0-37.0); MEAN CORPUSCULAR VOLUME 84.9 fl (82.0-101.0); MEAN PLATELET VOLUME 13.5 fl (7.4-10.4); MONOCYTE # 0.3 10^3/ul (0.3-0.9); MONOCYTES % 6.9 % (0.0-11.0); NEUTROPHIL # 2.3 10^3/ul (1.6-7.5); NEUTROPHILS % 49.5 % (39.0-77.0); RED BLOOD COUNT 5.35 10^6/ul (4.20-5.40); RED CELL DISTRIBUTION WIDTH 15.8 % (11.5-14.5); WHITE BLOOD COUNT 4.7 10^3/ul (4.8-10.8)
[2016-12-25] MEDS: ASPIRIN (EC) 81 MG TAB PO SCH (08:39)
[2016-12-25] MEDS: LISINOPRIL 10 MG TAB PO SCH ×2 (08:40→20:38)
[2016-12-25 08:49] LABS: PLATELET COUNT 138 10^3/UL (140-415); POSITIVE DIFF @See below
[2016-12-25 09:03] LABS: CREATININE 0.81 mg/dl (0.44-1.00); POTASSIUM 4.3 mmol/L (3.5-5.1)
[2016-12-25] MEDS ORDERED: REGADENOSON 0.4 MG/5 ML SYG ONE (10:57)
--- NOTE | 2016-12-25 11:42 | PN ---
Date/Time of Note Date/Time of Note DATE: 12/25/16 TIME: 11:37 Assessment/Plan VTE Prophylaxis VTE Prophylaxis Intervention: SCD's Lines/Catheters IV [facility]from [facility] Peripheral IV Assessment/Plan Chief Complaint/Hosp Course ASSESSMENT/PLAN: A 66-year-old female, past medical history of hypertension, high cholesterol, and breast cancer in the past who presents with chest pain, rule out acute coronary syndrome. 1. Chest pain-patient has ruled out for acute coronary syndrome. However echocardiogram shows ejection fraction 35%( see flow). -continue morphine, oxygen, nitroglycerin and aspirin as well -Continue current cardiac medications including ISMA inhibitor, beta-analilia, Lasix now. Follow-up cardiology recommended -Follow-up results of nuclear stress test. 2. History of hypertensive urgency. Again blood pressure is improved. Continue home blood pressure medicines and hydralazine as well as needed for systolic greater than 160. 3. High cholesterol - monitor 4. Deep venous thrombosis (DVT) prophylaxis- SCD's Problems: Subjective 24 Hr Interval Summary Free Text/Dictation Discharge was held yesterday, patient seen by cardiology team. Presently getting nuclear stress test. Exam/Review of Systems Vital Signs Vitals Vital Signs Date Time Temp Pulse Resp B/P Pulse Ox O2 Delivery O2 Flow Rate FiO2 12/25/16 08:11 98.6 62 18 164/79 96 12/23/16 20:30 Room Air Intake and Output 12/24/16 12/24/16 12/25/16 15:00 23:00 07:00 Intake Total 1380 ml 1250 ml Balance 1380 ml 1250 ml Exam Physical exam: -Unable to be performed today as patient is presently off the floor at nuclear medicine test Results Result Diagram: 12/25/16 0739 12/25/16 0739 Results 24 hrs Laboratory Tests Test 12/25/16 07:39 White Blood Count 4.7 L Red Blood Count 5.35 Hemoglobin 14.0 Hematocrit 45.4 Mean Corpuscular Volume 84.9 Mean Corpuscular Hemoglobin 26.2 L Mean Corpuscular Hemoglobin Concent 30.8 L Red Cell Distribution Width 15.8 H Platelet Count 138 #L Mean Platelet Volume 13.5 H Neutrophils % 49.5 Lymphocytes % 41.9 Monocytes % 6.9 Eosinophils % 1.3 Basophils % 0.2 Nucleated Red Blood Cells % 0.0 Neutrophils # 2.3 Lymphocytes # 2.0 Monocytes # 0.3 Eosinophils # 0.1 Basophils # 0.0 Nucleated Red Blood Cells # 0.0 Sodium Level 140 Potassium Level 4.3 Chloride Level 105 Carbon Dioxide Level 27 Anion Gap 12 Blood Urea Nitrogen 15 Creatinine 0.81 Glucose Level 91 Calcium Level 10.0 Medications Medications Current Medications Ondansetron HCl (Zofran Inj) 4 mg Q6H PRN IV NAUSEA AND/OR VOMITING; Start at 19:30 Acetaminophen (Tylenol Tab) 650 mg Q6H PRN PO PAIN LEVEL 1-3 OR FEVER Last administered on 12/23/16 21:28; Admin Dose 650 MG; Start 12/23/16 at 19:30 Acetaminophen/ Hydrocodone Bitart ([place] (5/325)) 1 tab Q6H PRN PO MODERATE PAIN LEVEL 4-6; Start 12/23/16 at 19:30 Morphine Sulfate (morphine) 2 mg Q4H PRN IV SEVERE PAIN LEVEL 7-10; Start 12/23 at 19:30 Docusate Sodium (Colace) 100 mg Q12H PRN PO CONSTIPATION; Start 12/23/16 at 19: 30 Magnesium Hydroxide (Milk Of Mag) 30 ml DAILY PRN PO CONSTIPATION; Start at 19:30 Sodium Biphosphate/ Sodium Phosphate (Fleet Enema) 133 ml DAILY PRN [place] CONSTIPATION; Start 12/23/16 at 19:30 Heparin Sodium (Porcine) 5000 unit 5,000 unit Q12 SC Last administered on 20:31; Admin Dose 5,000 UNIT; Start 12/23/16 at 21:00 Sodium Chloride (1/2 NS) 1,000 ml @ 75 mls/hr [id number] IV Last administered on 12/25/16 06:23; Admin Dose 75 MLS/HR; Start 12/23/16 at 19:15 Lorazepam (Ativan) 0.5 mg Q6H PRN IV ANXIETY; Start 12/23/16 at 19:30 Hydralazine HCl (Apresoline) 10 mg Q6H PRN IV ELEVATED BLOOD PRESSURE; Start at 19:30 Nitroglycerin (Nitroglycerin (Sl Tab) 0.4 Mg) 1 tab Q5M PRN SL ANGINA; Start at 19:30 Aspirin (Halfprin) 81 mg DAILY PO Last administered on 12/25/16 08:39; Admin Dose 81 MG; Start 12/24/16 at 09:00 Carvedilol (Coreg) 6.25 mg BID PO Last administered on 12/24/16 20:14; Admin Dose 6.25 MG; Start 12/23/16 at 21:00 Furosemide (Lasix) 20 mg DAILY@06 PO Last administered on 12/25/16 06:23; Admin Dose 20 MG; Start 12/24/16 at 06:00 Atorvastatin Calcium (Lipitor) 10 mg DAILY@21 PO Last administered on 20:13; Admin Dose 10 MG; Start 12/23/16 at 22:00 Lisinopril (Zestril) 10 mg BID PO Last administered on 12/25/16 08:40; Admin Dose 10 MG; Start 12/24/16 at 21:00 JASON GONZALEZ Dec 25, 2016 11:42
--- NOTE | 2016-12-25 11:48 | CONS ---
Date/Time of Note Date/Time of Note DATE: 12/25/16 TIME: 11:46 Assessment/Plan Assessment/Plan Additional Assessment/Plan Chest pain, resolved Compensated systolic congestive heart failure Cardiomyopathy with ejection fraction 35% Hypertension -Blood pressure on the higher end today but did not receive Coreg. Would give dose of Coreg and if needed antihypertensive medication doses could be adjusted. Continue aspirin and statin therapy if no contraindication. Plan for nuclear cardiac perfusion study today. Consultation Date/Type/Reason Admit Date/Time Dec 23, 2016 at 19:04 Initial Consult Date Type of Consultation: cv 24 HR Interval Summary Free Text/Dictation Feeling better, denies chest pain, shortness of breath. Plan for nuclear cardiac perfusion study today Exam/Review of Systems Vital Signs Vitals Vital Signs Date Time Temp Pulse Resp B/P Pulse Ox O2 Delivery O2 Flow Rate FiO2 12/25/16 08:11 98.6 62 18 164/79 96 12/23/16 20:30 Room Air Intake and Output 12/24/16 12/24/16 12/25/16 15:00 23:00 07:00 Intake Total 1380 ml 1250 ml Balance 1380 ml 1250 ml Exam No apparent distress Constitutional: alert, oriented Head: normocephalic Respiratory: other (Coarse breath sounds bilaterally, no wheezing) Cardiovascular: other (S1-S2 heard), regular rate and rhythm Gastrointestinal: bowel sounds, non-tender, soft Extremities: other (No edema) Results Result Diagram: 12/25/16 0739 12/25/16 0739 Results 24 hrs Laboratory Tests Test 12/25/16 07:39 White Blood Count 4.7 L Red Blood Count 5.35 Hemoglobin 14.0 Hematocrit 45.4 Mean Corpuscular Volume 84.9 Mean Corpuscular Hemoglobin 26.2 L Mean Corpuscular Hemoglobin Concent 30.8 L Red Cell Distribution Width 15.8 H Platelet Count 138 #L Mean Platelet Volume 13.5 H Neutrophils % 49.5 Lymphocytes % 41.9 Monocytes % 6.9 Eosinophils % 1.3 Basophils % 0.2 Nucleated Red Blood Cells % 0.0 Neutrophils # 2.3 Lymphocytes # 2.0 Monocytes # 0.3 Eosinophils # 0.1 Basophils # 0.0 Nucleated Red Blood Cells # 0.0 Sodium Level 140 Potassium Level 4.3 Chloride Level 105 Carbon Dioxide Level 27 Anion Gap 12 Blood Urea Nitrogen 15 Creatinine 0.81 Glucose Level 91 Calcium Level 10.0 Medications Medications Current Medications Ondansetron HCl (Zofran Inj) 4 mg Q6H PRN IV NAUSEA AND/OR VOMITING; Start at 19:30 Acetaminophen (Tylenol Tab) 650 mg Q6H PRN PO PAIN LEVEL 1-3 OR FEVER Last administered on 12/23/16 21:28; Admin Dose 650 MG; Start 12/23/16 at 19:30 Acetaminophen/ Hydrocodone Bitart ([place] (5/325)) 1 tab Q6H PRN PO MODERATE PAIN LEVEL 4-6; Start 12/23/16 at 19:30 Morphine Sulfate (morphine) 2 mg Q4H PRN IV SEVERE PAIN LEVEL 7-10; Start 12/23 at 19:30 Docusate Sodium (Colace) 100 mg Q12H PRN PO CONSTIPATION; Start 12/23/16 at 19: 30 Magnesium Hydroxide (Milk Of Mag) 30 ml DAILY PRN PO CONSTIPATION; Start at 19:30 Sodium Biphosphate/ Sodium Phosphate 133 ml 133 ml DAILY PRN [place] CONSTIPATION; Start 12/23/16 at 19:30 Sodium Chloride (1/2 NS) 1,000 ml @ 75 mls/hr [id number] IV Last administered on 12/25/16 06:23; Admin Dose 75 MLS/HR; Start 12/23/16 at 19:15 Lorazepam (Ativan) 0.5 mg Q6H PRN IV ANXIETY; Start 12/23/16 at 19:30 Hydralazine HCl (Apresoline) 10 mg Q6H PRN IV ELEVATED BLOOD PRESSURE; Start at 19:30 Nitroglycerin (Nitroglycerin (Sl Tab) 0.4 Mg) 1 tab Q5M PRN SL ANGINA; Start at 19:30 Aspirin (Halfprin) 81 mg DAILY PO Last administered on 12/25/16 08:39; Admin Dose 81 MG; Start 12/24/16 at 09:00 Carvedilol (Coreg) 6.25 mg BID PO Last administered on 12/24/16 20:14; Admin Dose 6.25 MG; Start 12/23/16 at 21:00 Furosemide (Lasix) 20 mg DAILY@06 PO Last administered on 12/25/16 06:23; Admin Dose 20 MG; Start 12/24/16 at 06:00 Atorvastatin Calcium (Lipitor) 10 mg DAILY@21 PO Last administered on 20:13; Admin Dose 10 MG; Start 12/23/16 at 22:00 Lisinopril (Zestril) 10 mg BID PO Last administered on 12/25/16 08:40; Admin Dose 10 MG; Start 12/24/16 at 21:00 Calos Ware DO Dec 25, 2016 11:48
--- NOTE | 2016-12-25 12:19 | RADRPT ---
PROCEDURE: LEXISCAN MYOCARDIAL PERFUSION STUDY CLINICAL INDICATION: 66 -year-old patient with chest pain and cardiomyopathy. TECHNIQUE: Lexiscan 0.4 mg intravenously separate acquisition, gated myocardial perfusion SPECT us ing 30 mCi intravenously at stress and 10 mCi intravenously at rest was performed using the rest/str ess sequence. Poststress SPECT images were obtained in the supine position. COMPARISON: No prior studies. FINDINGS: Perfusion images reveal mild fixed decreased attenuation at the apex compatible with apical thinning . Otherwise, no fixed or reversible defects. Poststress gated SPECT images demonstrate mild global hypokinesis. IMPRESSION: 1. No evidence of perfusion defects that suggest inducible ischemia or prior myocardial infarct. 2. Mild global hypokinesis. 3. The left ventricle ejection fraction at stress is 46%. RPTAT: HH Physician Hayden Date Time Electronically viewed and signed by Physician Hayden on 12/25/2016 12:19 /
[2016-12-25] MEDS: ATORVASTATIN 10 MG TAB PO SCH (20:38)
[2016-12-26] VITALS (8 sets, daily range): BP systolic 122–169; BP diastolic 58–79; PULSE 65–71; RESP 18–19
[2016-12-26] MEDS: SOD CHLORIDE 0.45% 1,000 ML IV SCH ×2 (00:35→13:04)
[2016-12-26] MEDS: FUROSEMIDE 20 MG TAB PO SCH (06:36)
[2016-12-26] MEDS: ASPIRIN (EC) 81 MG TAB PO SCH (08:47)
[2016-12-26] MEDS: LISINOPRIL 10 MG TAB PO SCH (08:47)
[2016-12-26 11:48] LABS: BASOPHILS % 0.4 % (0.0-2.0); EOSINOPHILS % 0.8 % (0.0-7.0); HEMATOCRIT 43.5 % (37.0-47.0); HEMOGLOBIN 13.7 g/dl (12.0-16.0); LYMPHOCYTES # 1.9 10^3/ul (0.8-2.9); LYMPHOCYTES % 38.4 % (15.0-51.0); MEAN CORPUSCULAR HEMOGLOBIN 26.5 pg (29.0-33.0); MEAN CORPUSCULAR HGB CONC 31.5 g/dl (32.0-37.0); MEAN CORPUSCULAR VOLUME 84.1 fl (82.0-101.0); MONOCYTE # 0.4 10^3/ul (0.3-0.9); MONOCYTES % 8.2 % (0.0-11.0); NEUTROPHIL # 2.5 10^3/ul (1.6-7.5); PLATELET COUNT 148 10^3/UL (140-415); RED BLOOD COUNT 5.17 10^6/ul (4.20-5.40); RED CELL DISTRIBUTION WIDTH 15.5 % (11.5-14.5); WHITE BLOOD COUNT 4.9 10^3/ul (4.8-10.8)
[2016-12-26 11:49] LABS: POSITIVE DIFF @See below
--- NOTE | 2016-12-26 12:11 | PN ---
Date/Time of Note Date/Time of Note DATE: 12/26/16 TIME: 12:06 Assessment/Plan VTE Prophylaxis VTE Prophylaxis Intervention: SCD's Lines/Catheters IV Catheter Type (from Nrsg): Saline Lock Assessment/Plan Assessment/Plan Chest pain, resolved Compensated systolic congestive heart failure Cardiomyopathy with ejection fraction 35% Hypertension - continue bp managment -Continue aspirin and statin therapy if no contraindication. -no ischemia by cardiolyte -no further caridac work up Subjective 24 Hr Interval Summary Free Text/Dictation The patient with no change Exam/Review of Systems Vital Signs Vitals Vital Signs Date Time Temp Pulse Resp B/P Pulse Ox O2 Delivery O2 Flow Rate FiO2 12/26/16 11:46 97.8 71 19 145/67 98 12/23/16 20:30 Room Air Intake and Output 12/25/16 12/25/16 12/26/16 15:00 23:00 07:00 Intake Total 450 ml 850 ml Balance 450 ml 850 ml Results Result Diagram: 12/26/16 1040 12/25/16 0739 Results 24 hrs Laboratory Tests Test 12/26/16 10:40 White Blood Count 4.9 Red Blood Count 5.17 Hemoglobin 13.7 Hematocrit 43.5 Mean Corpuscular Volume 84.1 Mean Corpuscular Hemoglobin 26.5 L Mean Corpuscular Hemoglobin Concent 31.5 L Red Cell Distribution Width 15.5 H Platelet Count 148 Mean Platelet Volume Neutrophils % 52.0 Lymphocytes % 38.4 Monocytes % 8.2 Eosinophils % 0.8 Basophils % 0.4 Nucleated Red Blood Cells % 0.0 Neutrophils # 2.5 Lymphocytes # 1.9 Monocytes # 0.4 Eosinophils # 0.0 Basophils # 0.0 Nucleated Red Blood Cells # 0.0 Medications Medications Current Medications Ondansetron HCl (Zofran Inj) 4 mg Q6H PRN IV NAUSEA AND/OR VOMITING; Start at 19:30 Acetaminophen (Tylenol Tab) 650 mg Q6H PRN PO PAIN LEVEL 1-3 OR FEVER Last administered on 12/23/16t 21:28; Admin Dose 650 MG; Start 12/23/16 at 19:30 Acetaminophen/ Hydrocodone Bitart ([place] (5/325)) 1 tab Q6H PRN PO MODERATE PAIN LEVEL 4-6; Start 12/23/16 at 19:30 Morphine Sulfate (morphine) 2 mg Q4H PRN IV SEVERE PAIN LEVEL 7-10; Start 12/23 at 19:30 Docusate Sodium (Colace) 100 mg Q12H PRN PO CONSTIPATION; Start 12/23/16 at 19: 30 Magnesium Hydroxide (Milk Of Mag) 30 ml DAILY PRN PO CONSTIPATION; Start at 19:30 Sodium Biphosphate/ Sodium Phosphate 133 ml 133 ml DAILY PRN [place] CONSTIPATION; Start 12/23/16 at 19:30 Sodium Chloride (1/2 NS) 1,000 ml @ 75 mls/hr [id number] IV Last administered on 12/25/16 12:36; Admin Dose 75 MLS/HR; Start 12/23/16 at 19:15 Lorazepam (Ativan) 0.5 mg Q6H PRN IV ANXIETY; Start 12/23/16 at 19:30 Hydralazine HCl (Apresoline) 10 mg Q6H PRN IV ELEVATED BLOOD PRESSURE; Start at 19:30 Nitroglycerin (Nitroglycerin (Sl Tab) 0.4 Mg) 1 tab Q5M PRN SL ANGINA; Start at 19:30 Aspirin (Halfprin) 81 mg DAILY PO Last administered on 12/26/16 08:47; Admin Dose 81 MG; Start 12/24/16 at 09:00 Carvedilol (Coreg) 6.25 mg BID PO Last administered on 12/26/16 08:47; Admin Dose 6.25 MG; Start 12/23/16 at 21:00 Furosemide (Lasix) 20 mg DAILY@06 PO Last administered on 12/26/16 06:36; Admin Dose 20 MG; Start 12/24/16 at 06:00 Atorvastatin Calcium (Lipitor) 10 mg DAILY@21 PO Last administered on 20:38; Admin Dose 10 MG; Start 12/23/16 at 22:00 Lisinopril (Zestril) 10 mg BID PO Last administered on 12/26/16 08:47; Admin Dose 10 MG; Start 12/24/16 at 21:00 ANALI KIDD MD Dec 26, 2016 12:11
[2016-12-26] MEDS ORDERED: LISI10TA2 PO (14:17)
[2016-12-26] MEDS ORDERED: UDMOM PO (14:19)
[2016-12-26 14:23] LABS: CALCIUM 9.5 mg/dl (8.4-10.2); CREATININE 0.9 mg/dl (0.44-1.00); POTASSIUM 3.9 mmol/L (3.5-5.1)
--- NOTE | 2016-12-26 14:32 | DS ---
Date/Time of Note Date/Time of Note DATE: 12/26/16 TIME: 14:31 Discharge Summary Admission/Discharge Info Admit Date/Time Dec 23, 2016 at 19:04 Discharge Date/Time Discharge Diagnosis 1. Chest pain. Ruled out for acute coronary syndrome. 2. Essential hypertension. 3. High cholesterol. 4. History of breast cancer, status post chemotherapy 9 years ago. 5. Compensated systolic congestive heart failure Cardiomyopathy with ejection fraction 35% Patient Condition: Stable Hospital Course The patient came in with chest pain symptoms. She had prior history of high cholesterol, hypertension and breast cancer with chemotherapy 9 years ago. She had been having substernal chest pain radiating to the arm, so she was admitted and ruled out for acute coronary syndrome, as her troponins were negative x3. Echocardiogram was performed, results are still pending by the time of discharge. Over the course of hospital stay, her chest pain symptoms improved. She had some mild chest tightness on day of discharge, but no chest pain. She was able to ambulate and tolerate a p.o. diet. Her vital signs were stable as well. Her cholesterol panel was normal. A1c was 5.9, and because she has ruled out for acute coronary syndrome. Patient also had echocardiogram performed with the following results: Conclusions 1. Normal left ventricular cavity size. Mild concentric left ventricular hypertrophy. Moderate left ventricular systolic dysfunction. Ejection fraction is visually estimated at 35 %. Tissue Doppler/Mitral Doppler indices are consistent with pseudonormalization with mildly elevated left atrial pressure (Stage II diastolic dysfunction). 2. Normal right ventricular size. Normal right ventricular systolic function. 3. There is mild enlargement of left atrium. 4. The right atrium is normal in size. 5. Mild to moderate mitral valve regurgitation. 6. Estimated peak PA systolic pressure 28 mmHg. There is mild tricuspid regurgitation. 7. No significant aortic stenosis or insufficiency. 8. Normal pericardium with no significant pericardial effusion. Patient underwent nuclear stress test after being seen by cardiology team and had some adjustments made to her blood pressure medications as well. It showed No evidence of perfusion defects that suggest inducible ischemia or prior myocardial infarct. After getting cleared by cardiology team patient will be discharged home today improved condition. See below for full list of discharge medications. Home Meds Active Scripts Magnesium Hydroxide* (Conte' MOM*) 30 Ml Susp, 30 ML PO DAILY Y for CONSTIPATION, #1 BOTTLE Prov:JASON GONZALEZ. 12/26/16 Lisinopril* (Lisinopril*) 10 Mg Tablet, 10 MG PO BID, #60 TAB 2 Refills Prov:JASON GONZALEZ S. 12/26/16 Reported Medications Aspirin Ec (Aspir 81) 81 Mg Tablet.dr, 81 MG PO DAILY, #30 TAB 04/24/16 Simvastatin (Simvastatin) 10 Mg Tablet, 10 MG PO QHS, #30 TAB 04/24/16 Furosemide* (Furosemide*) 20 Mg Tablet, 20 MG PO DAILY, #60 TAB 04/24/16 Carvedilol* (Carvedilol*) 6.25 Mg Tablet, 6.25 MG PO BID, #60 TAB 04/24/16 Discontinued Reported Medications Lisinopril* (Lisinopril*) 10 Mg Tablet, 10 MG PO DAILY, #30 TAB 04/24/16 Follow-up Plan Please take your medications as prescribed. If you experience any further chest pain symptoms, please call 911, go to the ER, or call your primary care doctor. These follow-up with her regular doctor in the clinic in the next 1 week. Primary Care Provider Marty Carrillo MD Time spent on discharge: > 30 minutes Pending Labs Laboratory Tests Test 12/26/16 10:40 12/26/16 13:26 White Blood Count 4.910^3/ul (4.8-10.8) Red Blood Count 5.1710^6/ul (4.20-5.40) Hemoglobin 13.7g/dl (12.0-16.0) Hematocrit 43.5% (37.0-47.0) Mean Corpuscular Volume 84.1fl (82.0-101.0) Mean Corpuscular Hemoglobin 26.5pg (29.0-33.0) Mean Corpuscular Hemoglobin Concent 31.5g/dl (32.0-37.0) Red Cell Distribution Width 15.5% (11.5-14.5) Platelet Count 12987^3/UL (140-415) Mean Platelet Volume fl (7.4-10.4) Neutrophils % 52.0% (39.0-77.0) Lymphocytes % 38.4% (15.0-51.0) Monocytes % 8.2% (0.0-11.0) Eosinophils % 0.8% (0.0-7.0) Basophils % 0.4% (0.0-2.0) Nucleated Red Blood Cells % 0.0/100WBC (0.0-0.0) Neutrophils # 2.510^3/ul (1.6-7.5) Lymphocytes # 1.910^3/ul (0.8-2.9) Monocytes # 0.410^3/ul (0.3-0.9) Eosinophils # 0.010^3/ul (0.0-0.5) Basophils # 0.010^3/ul (0.0-0.1) Nucleated Red Blood Cells # 0.010^3/ul (0.0-0.0) Sodium Level 139mmol/L (135-144) Potassium Level 3.9mmol/L (3.5-5.1) Chloride Level 104mmol/L (97-110) Carbon Dioxide Level 29mmol/L (21-31) Anion Gap 10 (8-16) Blood Urea Nitrogen 16mg/dl (7-20) Creatinine 0.90mg/dl (0.44-1.00) Glucose Level 70mg/dl (70-220) Calcium Level 9.5mg/dl (8.4-10.2) JASON GONZALEZ Dec 26, 2016 14:32
--- NOTE | 2016-12-30 13:50 | EN ---
Date/Time of Note Date/Time of Note DATE: 12/30/16 TIME: 13:46 Event Note Cardiology Cardiology Event Note Kady Scan ECG Report 12/25/16 62 y/o female with chest pain and cardiomyopathy Baseline ECG SR @ 6bpm, lateral T abnormalities BP 169/91 Lexiscan administered as per protocol Symptoms of SOB, [place] which resolved No significant ECG changes or arrhythmia Peak heart rate 93 Peak blood pressure 192/99 ECG interpretation: Non-ischemic Calos Ware DO Dec 30, 2016 13:50
== END 2016-12-26 15:34 | disposition home or self-care (01) | DRG 313 ==
LOC: E/R 17:32 → MS4 19:04
PROVIDERS: ADMIT Hospitalist; ATTEND Hospitalist
PROC: C22GYZZ Tomographic (Tomo) Nuclear Medicine Imaging of Myocardium using Other Radionuclide (ICD-10-PCS; principal; 2016-12-24)
PROC: 4A02XM4 Measurement of Cardiac Total Activity, External Approach (ICD-10-PCS; 2016-12-24)
PROC: 3E033HZ Introduction of Radioactive Substance into Peripheral Vein, Percutaneous Approach (ICD-10-PCS; 2016-12-24)
DX: R07.9 Chest pain, unspecified (principal); I11.0 Hypertensive heart disease with heart failure; I50.22 Chronic systolic (congestive) heart failure; I42.9 Cardiomyopathy, unspecified; E78.00 Pure hypercholesterolemia, unspecified; Z85.3 Personal history of malignant neoplasm of breast; Z92.21 Personal history of antineoplastic chemotherapy; I16.0 Hypertensive urgency
CPT/HCPCS: 36415; 71010; 78452; 80048; 80061; 81003; 82550; 82553; 83036; 83735; 84100; 84439; 84443; 84484; 85025; 87086; 93005; 93017; 93306; 97162; 97166; A9500; A9505; J1644; J2785; J3475

== ENCOUNTER 2016-12-27 23:02 | Emergency (ER) | payer OTHER ==
[~2016-12-27] VITALS: Ht 154.9 cm; Wt 77.0 kg
[~2016-12-27 23:02] MED LIST changes: +UDMOM PO
[2016-12-27 23:10] VITALS: Ht 154.9 cm; Wt 77.0 kg
--- NOTE | 2016-12-27 23:26 | ERD ---
ER Documentation Chief Complaint Date/Time DATE: 12/27/16 TIME: 23:25 Chief Complaint stabbing cp started an hr ago, pressure like pain now hx of heart problem HPI 66-year-old woman complains of substernal chest pain which also radiates to the left upper extremity and left shoulder. It began about an hour prior to arrival while she was sitting down. Symptoms are similar to multiple previous episodes she has had in the past and recently. She was just admitted for an inpatient workup and cardiology consultation for these exact chest pain episodes. She does have a depressed left ventricular ejection fraction although her serial troponins were negative and chest pain was deemed atypical. She does not use nitroglycerin, she denies nausea or vomiting, no shortness of breath, no cough, no calf or leg swelling. She states her discomfort has been constant, daily and similar to prior episodes. ROS All systems reviewed and are negative except as per history of present illness. Medications Home Meds Active Scripts Naproxen* (Naprosyn*) 500 Mg Tablet, 500 MG PO BID Y for PAIN AND/OR INFLAMMATION, #30 TAB Prov:CARLINE CRABTREE MD 12/28/16 Magnesium Hydroxide* (Conte' MOM*) 30 Ml Susp, 30 ML PO DAILY Y for CONSTIPATION, #1 BOTTLE Prov:JASON GONZALEZ S. 12/26/16 Lisinopril* (Lisinopril*) 10 Mg Tablet, 10 MG PO BID, #60 TAB 2 Refills Prov:JASON GONZALEZ S. 12/26/16 Reported Medications Aspirin Ec (Aspir 81) 81 Mg Tablet.dr, 81 MG PO DAILY, #30 TAB 04/24/16 Simvastatin (Simvastatin) 10 Mg Tablet, 10 MG PO QHS, #30 TAB 04/24/16 Furosemide* (Furosemide*) 20 Mg Tablet, 20 MG PO DAILY, #60 TAB 04/24/16 Carvedilol* (Carvedilol*) 6.25 Mg Tablet, 6.25 MG PO BID, #60 TAB 04/24/16 Discontinued Reported Medications Lisinopril* (Lisinopril*) 10 Mg Tablet, 10 MG PO DAILY, #30 TAB 04/24/16 Allergies Allergies: Coded Allergies: No Known Allergy (Unverified , 12/23/16) PMhx/Soc Dyslipidemia, hypertension, history of breast CA, CHF with left ventricular ejection fraction of about 35%, recurrent chest pain History of Surgery: Yes (RIGHT BREAST MASTECTOMY) Anesthesia Reaction: No Hx Neurological Disorder: No Hx Respiratory Disorders: No Hx Cardiac Disorders: Yes (HTN,HIGH CHOLESTEROL) Hx Psychiatric Problems: No Hx Miscellaneous Medical Probl: Yes (breast ca s/p chemo and R mastectom, HTN, high cholestrol) Hx Alcohol Use: No Hx Substance Use: No Hx Tobacco Use: No FmHx Family History: No diabetes Physical Exam Vitals Vital Signs Date Time Temp Pulse Resp B/P Pulse Ox O2 Delivery O2 Flow Rate FiO2 12/27/16 23:10 98.1 72 18 141/68 98 Physical Exam GENERAL: Well-developed, well-nourished, well-hydrated, anxious appearing, HEENT: Moist mucous membranes, pink conjunctiva, no cervical spine tenderness or step-off deformities, no goiter, no jaundice or icterus, extraocular movements intact without pain. No submandibular induration, and no pharyngeal erythema NEURO: Alert and oriented 3, cranial nerves II through XII intact bilaterally, pupils equal round reactive to light, no focal deficits or facial asymmetry, sensation intact distally Strength 5/5 in upper and lower extremities bilaterally CARDIAC: Regular rate and rhythm, no murmurs rubs or gallops LUNGS: Clear bilaterally no wheezing crackles or stridor ABDOMEN: Soft nontender, no guarding, no rigidity, no rebound, no psoas sign no obturator sign. Normoactive bowel sounds SKIN: Warm and dry to touch, no abrasions, contusions, or hematomas, no lacerations, no ecchymosis, no target lesions, and without ulcers EXTREMITIES: No clubbing cyanosis or edema, calves are bilaterally symmetrical, no Homans sign, no popliteal cord sign. Distal pulses equal and bilateral PSYCH: Anxious Result Diagram: 12/28/16 0013 12/28/16 0013 Results 24 hrs Laboratory Tests Test 12/28/16 00:13 White Blood Count 5.710^3/ul Red Blood Count 4.8210^6/ul Hemoglobin 12.5g/dl Hematocrit 40.7% Mean Corpuscular Volume 84.4fl Mean Corpuscular Hemoglobin 25.9pg Mean Corpuscular Hemoglobin Concent 30.7g/dl Red Cell Distribution Width 15.7% Platelet Count 44850^3/UL Mean Platelet Volume 14.0fl Neutrophils % 47.6% Lymphocytes % 40.6% Monocytes % 10.0% Eosinophils % 1.1% Basophils % 0.5% Nucleated Red Blood Cells % 0.0/100WBC Neutrophils # 2.710^3/ul Lymphocytes # 2.310^3/ul Monocytes # 0.610^3/ul Eosinophils # 0.110^3/ul Basophils # 0.010^3/ul Nucleated Red Blood Cells # 0.010^3/ul Sodium Level 137mmol/L Potassium Level 3.8mmol/L Chloride Level 102mmol/L Carbon Dioxide Level 28mmol/L Anion Gap 11 Blood Urea Nitrogen 18mg/dl Creatinine 0.89mg/dl Glucose Level 101mg/dl Calcium Level 9.8mg/dl Total Bilirubin 0.5mg/dl Direct Bilirubin 0.00mg/dl Indirect Bilirubin 0.5mg/dl Aspartate Amino Transf (AST/SGOT) 31IU/L Alanine Aminotransferase (ALT/SGPT) 43IU/L Alkaline Phosphatase 65IU/L Troponin I < 0.012ng/ml Total Protein 8.2g/dl Albumin 4.3g/dl Globulin 3.90g/dl Albumin/Globulin Ratio 1.10 Lipase 247U/L Current Medications Medications (Trade) Dose Ordered Sig/Neelima Route PRN Reason Start Time Stop Time Status Last Admin Dose Admin Miscellaneous Medication (Gi Cocktail (2)) 40 ml ONCE STAT PO 12/27/16 23:40 12/27/16 23:42 DC 12/27/16 23:40 Belladonna/ Phenobarbital () 2 tab ONCE STAT PO 12/27/16 23:40 12/27/16 23:42 DC 12/27/16 23:40 Ketorolac Tromethamine (Toradol) 30 mg ONCE STAT IM 12/27/16 23:40 12/27/16 23:42 DC 12/27/16 23:40 Lorazepam (Ativan) 0.5 mg ONCE ONCE PO 12/28/16 00:00 12/28/16 00:01 DC 12/28/16 00:42 Procedures/MDM Patient was placed on cafeteria monitor rhythm strip revealed a sinus rhythm at about 70 bpm with upright P and T waves. Patient was afebrile. Chest X-ray 1V Interpreted by me: Soft Tissue: No acute abnormalities Bones: No acute abnormalities Mediastinum/Cardiac Silhouette/Lungs: No acute abnormalities EKG performed, read by me revealed a normal sinus rhythm at 66 bpm, normal axis , narrow QRS complex, no concerning ST elevations or depressions noted. I reviewed her recent lab work and inpatient cardiology consultation report as well as her recent echocardiogram results. CBC and electrolytes were normal, liver function tests were normal, troponin was negative. For her symptoms I administered 30 mg IM 1, lorazepam 0.5 mg p.o. Patient symptoms resolved, she feels better and workup here was unremarkable. Vital signs are normal. Differential diagnoses considered, included but not limited to acute coronary syndrome, pulmonary embolism, aortic dissection, abdominal aortic aneurysm, sepsis, stroke, meningitis, encephalitis, pneumonia, appendicitis, cholecystitis , bowel obstruction, pyelonephritis, nephrolithiasis, cystitis, as well as metabolic, hematologic, and electrolyte abnormalities. As well as abscess, cellulitis, fractures, and dislocations. Patient feels much better at this time, and vital signs are normal, symptoms have improved. I did give strict instructions to return to the ED if symptoms continue or worsen, patient will otherwise follow-up with primary care physician. Patient understood instructions and agreed to plan. Disclaimer: Inadvertent spelling and grammatical errors are likely due to EHR/ dictation software use and do not reflect on the overall quality of patient care. Also, please note that the electronic time recorded on this note does not necessarily reflect the actual time of the patient encounter. Departure Diagnosis: Primary Impression: Chest pain Chest pain type: unspecified Qualified Code: R07.9 - Chest pain, unspecified type Condition: CARLINE Bailey MD Dec 27, 2016 23:26
[2016-12-27] MEDS ORDERED: KETOROLAC 30 MG INJ IM STA (23:40)
[2016-12-27] MEDS ORDERED: LIDOCAINE/MYLANTA 40 ML BTL PO STA (23:40)
[2016-12-27] MEDS ORDERED: BELLADONNA/PHENOBARBITAL TAB PO STA (23:40)
[2016-12-28] MEDS ORDERED: LORAZEPAM 0.5 MG TAB PO ONE
--- NOTE | 2016-12-28 00:23 | RADRPT ---
PROCEDURE: XR Chest. CLINICAL INDICATION: Chest pain. TECHNIQUE: Single frontal view of the chest was obtained. COMPARISON: Chest x-ray 12/23/2016. FINDINGS: The soft tissues are normal. There are degenerative osteophytes in the thoracic spine. The left ve ntricle is enlarged. The cardiomediastinal silhouette and hilar structures are normal. The pulmonary vasculature is normal. Atherosclerotic calcifications are noted in the aortic arch. The lungs are clear. The costophrenic angles are normal. The chest x-ray is stable as compared to the prior study . IMPRESSION: 1. Atherosclerosis of the aortic arch. 2. Left ventricular enlargement. 3. No evidence of an acute infiltrate. 4. Spondylosis of the thoracic spine. RPTAT:AAJJ Physician Gallito Date Time Electronically viewed and signed by Andrea Hathaway Physician on 12/28/2016 00:22 MARIA L/
[2016-12-28 00:30] LABS: ABNORMAL IP MESSAGE 1; BASOPHILS % 0.5 % (0.0-2.0); EOSINOPHILS # 0.1 10^3/ul (0.0-0.5); EOSINOPHILS % 1.1 % (0.0-7.0); HEMATOCRIT 40.7 % (37.0-47.0); HEMOGLOBIN 12.5 g/dl (12.0-16.0); LYMPHOCYTES # 2.3 10^3/ul (0.8-2.9); LYMPHOCYTES % 40.6 % (15.0-51.0); MEAN CORPUSCULAR HEMOGLOBIN 25.9 pg (29.0-33.0); MEAN CORPUSCULAR HGB CONC 30.7 g/dl (32.0-37.0); MEAN CORPUSCULAR VOLUME 84.4 fl (82.0-101.0); MONOCYTE # 0.6 10^3/ul (0.3-0.9); NEUTROPHIL # 2.7 10^3/ul (1.6-7.5); NEUTROPHILS % 47.6 % (39.0-77.0); PLATELET COUNT 134 10^3/UL (140-415); RED BLOOD COUNT 4.82 10^6/ul (4.20-5.40); RED CELL DISTRIBUTION WIDTH 15.7 % (11.5-14.5); WHITE BLOOD COUNT 5.7 10^3/ul (4.8-10.8)
[2016-12-28 00:41] LABS: POSITIVE DIFF @See below
[2016-12-28 01:09] LABS: ALANINE AMINOTRANSFERASE 43 IU/L (13-69); ALBUMIN 4.3 g/dl (3.3-4.9); ALKALINE PHOSPHATASE 65 IU/L (42-121); ANION GAP 11 (8-16); ASPARTATE AMINO TRANSFERASE 31 IU/L (15-46); BILIRUBIN,INDIRECT 0.5 mg/dl (0-1.1); BILIRUBIN,TOTAL 0.5 mg/dl (0.2-1.3); BLOOD UREA NITROGEN 18 mg/dl (7-20); CALCIUM 9.8 mg/dl (8.4-10.2); CARBON DIOXIDE 28 mmol/L (21-31); CHLORIDE 102 mmol/L (97-110); CREATININE 0.89 mg/dl (0.44-1.00); GLUCOSE 101 mg/dl (70-220); POTASSIUM 3.8 mmol/L (3.5-5.1); SODIUM 137 mmol/L (135-144); TOTAL PROTEIN 8.2 g/dl (6.1-8.1)
[2016-12-28 01:22] LABS: TROPONIN-I < 0.012 ng/ml (0.00-0.12)
[2016-12-28] MEDS ORDERED: NAPR-260 PO (01:31)
[2016-12-28 01:38] VITALS: BP 156/77; PULSE 66; RESP 16; TEMP 98.3
== END 2016-12-28 01:47 | disposition home or self-care (01) ==
LOC: E/R 23:02
DX: R07.2 Precordial pain (principal); I10 Essential (primary) hypertension; I50.9 Heart failure, unspecified; Z85.3 Personal history of malignant neoplasm of breast; Z79.82 Long term (current) use of aspirin
CPT/HCPCS: 36415; 71010; 80053; 83690; 84484; 85025; 93005; 96372; 99285; J1885

== ENCOUNTER 2017-01-19 16:44 | Emergency (ER) | payer SELFPAY ==
[~2017-01-19] VITALS: Ht 162.6 cm; Wt 78.0 kg
[~2017-01-19 16:44] MED LIST changes: +NAPR-260 PO
[2017-01-19 16:49] VITALS: Ht 162.6 cm; Wt 78.0 kg
== END 2017-01-19 21:35 | disposition left against medical advice (07) ==
LOC: E/R 16:44
DX: Z53.21 Procedure and treatment not carried out due to patient leaving prior to being seen by health care provider (principal)

== ENCOUNTER 2017-02-25 22:41 | Inpatient (IN) | payer OTHER ==
[~2017-02-25] VITALS: Ht 167.6 cm; Wt 79.0 kg
[2017-02-25 22:44] VITALS: Ht 167.6 cm; Wt 79.0 kg
--- NOTE | 2017-02-25 23:04 | ERD ---
ER Documentation Chief Complaint Chief Complaint chest pain HPI The patient is a 66-year-old female, presenting to the ER because of substernal chest pain that began about 9 PM, 10/05, radiating down to her left arm, worse with walking. She had similar symptoms previously, was last hospitalized in November 2016. She denies dyspnea, abdominal pain, vomiting, dysuria, diarrhea. She does not smoke, has increased stress at home Past medical history: History of right breast cancer postchemotherapy, hypertension, dyslipidemia, CAD with low EF of 35% Surgical history: Right mastectomy, fibroid surgery ROS All systems reviewed and are negative except as per history of present illness. Medications Home Meds Active Scripts Lisinopril* (Lisinopril*) 10 Mg Tablet, 10 MG PO BID, #60 TAB 2 Refills Prov:JASON GONZALEZ S. 12/26/16 Reported Medications Carvedilol* (Carvedilol*) 12.5 Mg Tablet, 12.5 MG PO BID, #60 TAB 02/25/17 Aspirin Ec (Aspir 81) 81 Mg Tablet.dr, 81 MG PO DAILY, #30 TAB 04/24/16 Simvastatin (Simvastatin) 10 Mg Tablet, 10 MG PO QHS, #30 TAB 04/24/16 Furosemide* (Furosemide*) 20 Mg Tablet, 20 MG PO DAILY, #60 TAB 04/24/16 Discontinued Reported Medications Carvedilol* (Carvedilol*) 6.25 Mg Tablet, 6.25 MG PO BID, #60 TAB 04/24/16 Discontinued Scripts Naproxen* (Naprosyn*) 500 Mg Tablet, 500 MG PO BID Y for PAIN AND/OR INFLAMMATION, #30 TAB Prov:CARLINE CRABTREE MD 12/28/16 Magnesium Hydroxide* (Conte' MOM*) 30 Ml Susp, 30 ML PO DAILY Y for CONSTIPATION, #1 BOTTLE Prov:JASON GONZALEZ S. 12/26/16 Allergies Allergies: Coded Allergies: No Known Allergy (Unverified , 02/25/17) PMhx/Soc History of Surgery: Yes (RIGHT BREAST MASTECTOMY) Anesthesia Reaction: No Hx Neurological Disorder: No Hx Respiratory Disorders: No Hx Cardiac Disorders: Yes (HTN,HIGH CHOLESTEROL) Hx Psychiatric Problems: No Hx Miscellaneous Medical Probl: Yes (breast ca s/p chemo and R mastectom, HTN, high cholestrol) Hx Alcohol Use: No Hx Substance Use: No Hx Tobacco Use: No Physical Exam Vitals Vital Signs Date Time Temp Pulse Resp B/P Pulse Ox O2 Delivery O2 Flow Rate FiO2 02/25/17 22:44 98.3 73 20 191/105 100 Physical Exam Const: No acute distress. Head: Atraumatic. Eyes: Normal Conjunctiva. ENT: Normal External Ears, Nose and Mouth. Neck: Full range of motion. No meningismus. Resp: Clear to auscultation bilaterally. Cardio: Regular rate and rhythm. Abd: Soft, non distended, normal bowel sounds, non tender. Skin: No petechiae or rashes. Back: No midline or flank tenderness. Ext: No cyanosis, or edema. Neur: Awake and alert. No focal deficit Psych: Normal Mood and Affect. Result Diagram: 02/25/17232902/25/172329 Results 24 hrs Laboratory Tests Test 02/25/17 23:30 White Blood Count 5.410^3/ul Red Blood Count 4.4410^6/ul Hemoglobin 11.8g/dl Hematocrit 38.9% Mean Corpuscular Volume 87.6fl Mean Corpuscular Hemoglobin 26.6pg Mean Corpuscular Hemoglobin Concent 30.3g/dl Red Cell Distribution Width 16.3% Platelet Count 47288^3/UL Mean Platelet Volume 12.7fl Neutrophils % 52.1% Lymphocytes % 38.3% Monocytes % 7.6% Eosinophils % 1.1% Basophils % 0.7% Nucleated Red Blood Cells % 0.0/100WBC Neutrophils # 2.810^3/ul Lymphocytes # 2.110^3/ul Monocytes # 0.410^3/ul Eosinophils # 0.110^3/ul Basophils # 0.010^3/ul Nucleated Red Blood Cells # 0.010^3/ul D-Dimer 242.26ng/ml D-Dimer Comment Sodium Level 142mmol/L Potassium Level 3.8mmol/L Chloride Level 105mmol/L Carbon Dioxide Level 25mmol/L Anion Gap 16 Blood Urea Nitrogen 17mg/dl Creatinine 0.90mg/dl Glucose Level 100mg/dl Calcium Level 9.6mg/dl Troponin I < 0.012ng/ml Current Medications Medications (Trade) Dose Ordered Sig/Neelima Route PRN Reason Start Time Stop Time Status Last Admin Dose Admin Aspirin (Aspirin) 325 mg ONCE ONCE PO 02/26/17 01:30 02/26/17 01:31 DC 02/26/17 01:19 Nitroglycerin (Nitroglycerin 2% Oint) 1 inch ONCE ONCE TD 02/26/17 01:30 02/26/17 01:31 DC 02/26/17 01:20 Enoxaparin Sodium (Lovenox) 80 mg ONCE SC 02/26/17 01:30 02/26/17 01:19 Procedures/[place] [id number] Radiology Main Line: [phone] DIAGNOSTIC IMAGING REPORT Patient: BRAULIO MONTELONGO : 1950 Age: 66 Sex: F MR #: [id number] DOS: 02/25/17 2310 Ordering MD: HELEN SON MD Location: E/R Room/Bed: PROCEDURE: XR Chest. CLINICAL INDICATION: Chest pain TECHNIQUE: Single frontal chest x-ray. COMPARISON: Chest x-ray 12/27/2016 FINDINGS: The lungs are clear. No focal opacification is seen. The cardiomediastinal silhouette is borderline enlarged. Aortic atherosclerotic vascular calcifications are identified. The osseous structures are remarkable for mild degenerative enthesopathy of the spine. IMPRESSION: 1. No acute cardiopulmonary process. 2. Benign chronic senescent changes. 3. Borderline cardiomegaly, unchanged. 4. Stable appearances over time. RPTAT: PP .Alcon Jo MD, MD Date Time Electronically viewed and signed by .Alcon Jo MD, on 02/25/2017 23:37 .B/ CC: HELEN SON MD EK:48 hr Read by emergency physician Rate/Rhythm: Normal Sinus Rhythm 69 beats/min QRS, ST, T-waves: No ST elevation, no T inversion, LAE Impression: Abnormal EKG EK:30 hr Read by emergency physician Rate/Rhythm: Normal Sinus Rhythm 84 beats/min QRS, ST, T-waves: No ST elevation, new ST and T abnormality in inferolateral leads Impression: Abnormal EKG MEDICAL MAKING DECISION: The patient is a 66-year-old female, presenting with acute chest pain with EKG changes, concerning for acute ACS. She was treated with aspirin 325 mg p.o., 1 inch of nitroglycerin ointment to the chest wall, Lovenox 1 mg/kg subcutaneously for acute ACS with good response The differential diagnoses considered include but are not limited to acute coronary syndrome, acute myocardial infarction, pericarditis, pulmonary embolism , aortic dissection, pneumonia, pleural effusion, pneumothorax, GERD, chest wall pain. Departure Diagnosis: Primary Impression: Chest pain Additional Impression: Anemia Condition: Stable Comments I discussed the findings with the patient. I discussed the patient with the hospitalist Dr. Siu at 1:30 AM who was made aware of the lab, the treatment , the patient condition. The patient is admitted to Tel Disclaimer: Inadvertent spelling and grammatical errors are likely due to EHR/ dictation software use and do not reflect on the overall quality of patient care. Also, please note that the electronic time recorded on this note does not necessarily reflect the actual time of the patient encounter. HELEN SON MD Feb 25, 2017 23:04
--- NOTE | 2017-02-25 23:38 | RADRPT ---
PROCEDURE: XR Chest. CLINICAL INDICATION: Chest pain TECHNIQUE: Single frontal chest x-ray. COMPARISON: Chest x-ray 12/27/2016 FINDINGS: The lungs are clear. No focal opacification is seen. The cardiomediastinal silhouette is borderlin e enlarged. Aortic atherosclerotic vascular calcifications are identified. The osseous structures ar e remarkable for mild degenerative enthesopathy of the spine. IMPRESSION: 1. No acute cardiopulmonary process. 2. Benign chronic senescent changes. 3. Borderline cardiomegaly, unchanged. 4. Stable appearances over time. RPTAT: PP .Alcon Jo MD, Date Time Electronically viewed and signed by .Alcon Jo MD, on 02/25/2017 23:37 .B/
[2017-02-25] MEDS ORDERED: CARV12.579 PO (23:41)
[2017-02-25 23:49] LABS: BASOPHILS % 0.7 % (0.0-2.0); EOSINOPHILS # 0.1 10^3/ul (0.0-0.5); EOSINOPHILS % 1.1 % (0.0-7.0); HEMATOCRIT 38.9 % (37.0-47.0); HEMOGLOBIN 11.8 g/dl (12.0-16.0); LYMPHOCYTES # 2.1 10^3/ul (0.8-2.9); LYMPHOCYTES % 38.3 % (15.0-51.0); MEAN CORPUSCULAR HEMOGLOBIN 26.6 pg (29.0-33.0); MEAN CORPUSCULAR HGB CONC 30.3 g/dl (32.0-37.0); MEAN CORPUSCULAR VOLUME 87.6 fl (82.0-101.0); MEAN PLATELET VOLUME 12.7 fl (7.4-10.4); MONOCYTE # 0.4 10^3/ul (0.3-0.9); MONOCYTES % 7.6 % (0.0-11.0); NEUTROPHIL # 2.8 10^3/ul (1.6-7.5); NEUTROPHILS % 52.1 % (39.0-77.0); PLATELET COUNT 133 10^3/UL (140-415); RED BLOOD COUNT 4.44 10^6/ul (4.20-5.40); RED CELL DISTRIBUTION WIDTH 16.3 % (11.5-14.5); WHITE BLOOD COUNT 5.4 10^3/ul (4.8-10.8)
[2017-02-26] VITALS (13 sets, daily range): BP systolic 118–158; BP diastolic 57–75; PULSE 58–69; RESP 16–19
[2017-02-26 00:09] LABS: ANION GAP 16 (8-16); BLOOD UREA NITROGEN 17 mg/dl (7-20); CALCIUM 9.6 mg/dl (8.4-10.2); CARBON DIOXIDE 25 mmol/L (21-31); CHLORIDE 105 mmol/L (97-110); GLUCOSE 100 mg/dl (70-220); POTASSIUM 3.8 mmol/L (3.5-5.1); SODIUM 142 mmol/L (135-144)
[2017-02-26 00:22] LABS: D-DIMER 242.26 ng/ml (<460)
[2017-02-26 00:32] LABS: TROPONIN-I < 0.012 ng/ml (0.00-0.12)
[2017-02-26] MEDS ORDERED: ASPIRIN 325 MG TAB PO ONE (01:30)
[2017-02-26] MEDS ORDERED: ENOXAPARIN 80 MG/0.8 ML SYG SC SCH (01:30)
[2017-02-26] MEDS ORDERED: NITROGLYCERIN 2% 1 GM OINT PKT TD ONE (01:30)
[2017-02-26] MEDS ORDERED: DOCUSATE SODIUM 100 MG CAP PO PRN (03:00)
[2017-02-26] MEDS ORDERED: morphine 2 MG INJ IV PRN (03:00)
[2017-02-26] MEDS ORDERED: ACETAMINOPHEN 650 MG SUPP PR PRN (03:00)
[2017-02-26] MEDS ORDERED: ONDANSETRON 4 MG TAB PO PRN (03:00)
[2017-02-26] MEDS ORDERED: NACL 0.9% 3 ML SYG IV SCH (03:00)
[2017-02-26] MEDS ORDERED: NITROGLYCERIN (SL) 0.4 MG TAB SL PRN (03:00)
[2017-02-26] MEDS ORDERED: BISACODYL (EC) 5 MG TAB PO PRN (03:00)
[2017-02-26] MEDS: ACETAMINOPHEN 325 MG TAB PO PRN ×2 (03:51→11:10)
--- NOTE | 2017-02-26 06:58 | HP ---
Date/Time of Note Date/Time of Note DATE: 02/26/17 TIME: 06:32 Assessment/Plan VTE Prophylaxis VTE Prophylaxis Intervention: SCD's Lines/Catheters IV [facility] Saline Lock Urinary Cath still in place: No Assessment/Plan Chief Complaint/Hosp Course This is a 66-year-old male being admitted to the telemetry floor for #1 chest pain: Costochondritis versus ACS. Patient does have palpable tenderness to palpation and she has been under stress which could make this cost chondritis. Within the last 2-1/2 months she had an echocardiogram that showed an ejection fraction of approximately 35% and also a Lexiscan that showed mild global hypokinesis with No evidence of perfusion defects that suggest inducible ischemia or prior myocardial infarct. At the current time will trend cardiac enzymes first set was negative, will morphine nitro aspirin. I will defer any additional imaging to cardiology. Will give a one-time dose of Toradol 30 mg IV 1 for her palpable chest pain. #2 Systolic congestive heart failure: Patient has most recent echo with 35% ejection fraction. Continue beta-analilia, aspirin, ISMA inhibitor, statin. Consult cardiology as per #1. #3 hypertension: Continue patient's home medications #4 hyperlipidemia: Continue statin #5 DVT GI prophylaxis: SCDs no GI prophylaxis indicated Further treatment strategy will be implemented as per the clinical course Problems: HPI/ROS Admit Date/Time Admit Date/Time Feb 26, 2017 at 01:33 Hx of Present Illness Chief complaint: Chest pain The patient is a 66-year-old female, presenting to the ER because of substernal chest pain that began about 9 PM, 7/10, radiating down to her left arm, worse with walking. She had similar symptoms previously, was last hospitalized in November 2016. She denies dyspnea, abdominal pain, vomiting, dysuria, diarrhea. She does not smoke, has increased stress at home. She does state that she has been under stress lately secondary to her daughter's clinical conditions. Allergies: NKDA Medications: See BARAK BRAVO Const: As per HPI Eyes : No pain discharge or redness or change in visual acuity ENT: No pain, sore throat, congestion, congestion, dysphagia or discharge Respiratory: No shortness of breath, cough, sputum, wheezing, or pleuritic pain Cardiovascular: As per HPI GI : no change in appetite, abdominal pain, nausea, vomiting, diarrhea, constipation, or change in the color his stool Genitourinary: No dysuria, hematuria, flank pain , discharge or CVA tenderness Musculoskeletal: No joint pain, back pain, neck pain, restricted range of motion in neck or joints Skin: No rash, bruising or hives Neuro: No headache, dizziness, syncope, seizure, focal weakness Endocrine: No polyuria, polydipsia, temperature intolerance Psych: No hallucination, depression, anxiety or suicidal ideation PMH/Family/Social Past Medical History History of right breast cancer post chemotherapy, hypertension, dyslipidemia, CAD with low EF of 35% Past Surgical History Right mastectomy, fibroid surgery Past Surgical Hx: other Family History Significant Family History: heart disease (Uncle) Social History Alcohol Use: none Smoking Status: Never smoker Drug Use: none Exam/Review of Systems Vital Signs Vitals Vital Signs Date Time Temp Pulse Resp B/P Pulse Ox O2 Delivery O2 Flow Rate FiO2 02/26/17 05:09 58 02/26/17 04:02 97.9 18 139/73 98 02/26/17 01:59 Room Air Intake and Output 02/25/17 02/25/17 02/26/17 15:00 23:00 07:00 Intake Total 200 ml Balance 200 ml Exam Exam General: Patient is well-developed well-nourished The patient is alert oriented -3 lying comfortably in bed. HEENT: Atraumatic, normocephalic. The pupils are equal, round and reactive. Extraocular motor are intact Neck: Supple with full range of motion. No rigidity or meningismus Chest: Tender to palpation across the anterior right and left chest greater at the left side Lungs: Clear to auscultation bilaterally no crackles rales or wheezing Heart: Normal S1-S2, Regular rhythm and rate. Overt murmurs appreciated Abdomen: Soft , nontender, nondistended , bowel sounds are present. No guarding no rebound tenderness , No masses or organomegaly. No costovertebral temporal angle mass Extremities: Normal to inspection, no edema no cyanosis Neurologic: Normal mental status, speech normal, cranial nerves II through XII are intact, motor and sensory are intact, no focal weakness Additional Comments Conclusions 1. Normal left ventricular cavity size. Mild concentric left ventricular hypertrophy. Moderate left ventricular systolic dysfunction. Ejection fraction is visually estimated at 35 %. Tissue Doppler/Mitral Doppler indices are consistent with pseudonormalization with mildly elevated left atrial pressure (Stage II diastolic dysfunction). 2. Normal right ventricular size. Normal right ventricular systolic function. 3. There is mild enlargement of left atrium. 4. The right atrium is normal in size. 5. Mild to moderate mitral valve regurgitation. 6. Estimated peak PA systolic pressure 28 mmHg. There is mild tricuspid regurgitation. 7. No significant aortic stenosis or insufficiency. 8. Normal pericardium with no significant pericardial effusion. Electronically Signed By: Calos Ware 24-Dec-2016 14:47:05 -0700 Patient Name: BRAULIO MONTELONGO Study Date: 24-Dec-2016 EK:48 hr Read by emergency physician Rate/Rhythm: Normal Sinus Rhythm 69 beats/min QRS, ST, T-waves: No ST elevation, no T inversion, LAE Impression: Abnormal EKG EK:30 hr Read by emergency physician Rate/Rhythm: Normal Sinus Rhythm 84 beats/min QRS, ST, T-waves: No ST elevation, new ST and T abnormality in inferolateral leads Impression: Abnormal EKG Above as per ED physician" PROCEDURE: LEXISCAN MYOCARDIAL PERFUSION STUDY CLINICAL INDICATION: 66 -year-old patient with chest pain and cardiomyopathy. TECHNIQUE: Lexiscan 0.4 mg intravenously separate acquisition, gated myocardial perfusion SPECT using 30 mCi intravenously at stress and 10 mCi intravenously at rest was performed using the rest/stress sequence. Poststress SPECT images were obtained in the supine position. COMPARISON: No prior studies. FINDINGS: Perfusion images reveal mild fixed decreased attenuation at the apex compatible with apical thinning. Otherwise, no fixed or reversible defects. Poststress gated SPECT images demonstrate mild global hypokinesis. IMPRESSION: 1. No evidence of perfusion defects that suggest inducible ischemia or prior myocardial infarct. 2. Mild global hypokinesis. 3. The left ventricle ejection fraction at stress is 46%. RPTAT: HH Physician Hayden Date Time Electronically viewed and signed by Physician Hayden on 12/25/2016 12 :19 GC/ CC: Jeanie,Calos N. DO PROCEDURE: XR Chest. CLINICAL INDICATION: Chest pain TECHNIQUE: Single frontal chest x-ray. COMPARISON: Chest x-ray 12/27/2016 FINDINGS: The lungs are clear. No focal opacification is seen. The cardiomediastinal silhouette is borderline enlarged. Aortic atherosclerotic vascular calcifications are identified. The osseous structures are remarkable for mild degenerative enthesopathy of the spine. IMPRESSION: 1. No acute cardiopulmonary process. 2. Benign chronic senescent changes. 3. Borderline cardiomegaly, unchanged. 4. Stable appearances over time. RPTAT: PP .Alcon Jo MD, MD Date Time Electronically viewed and signed by .Alcon Jo MD, MD on 02/25/2017 23:37 .B/ CC: CALOS SON MD Labs Result Diagram: 02/25/17 2330 02/25/17 2330 Medications Medications Current Medications Aspirin (Halfprin) 81 mg DAILY PO ; Start 02/26/17 at 09:00 Carvedilol (Coreg) 12.5 mg BID PO ; Start 02/26/17 at 09:00 Furosemide (Lasix) 20 mg DAILY PO ; Start 02/26/17 at 09:00 Lisinopril (Zestril) 10 mg BID PO ; Start 02/26/17 at 09:00 Miscellaneous Information 10 mg QHS PO ; Start 02/26/17 at 21:00; Status UNV Ondansetron HCl (Zofran Tab) 4 mg Q6H PRN PO NAUSEA AND/OR VOMITING; Start 02/26/17 at 03:00 Nitroglycerin (Nitroglycerin (Sl Tab) 0.4 Mg) 1 tab Q5M PRN SL CHEST PAIN; Start 02/26/17 at 03:00 Morphine Sulfate (morphine) 2 mg Q4H PRN IV PAIN LEVEL 7-10; Start 02/26/17 at 03:00 Docusate Sodium (Colace) 100 mg Q12H PRN PO CONSTIPATION; Start 02/26/17 at 03: 00 Bisacodyl (Dulcolax) 5 mg DAILY PRN PO CONSTIPATION; Start 02/26/17 at 03:00 Acetaminophen (Tylenol Tab) 650 mg Q4H PRN PO PAIN AND OR ELEVATED TEMP Last administered on 02/26/17 03:51; Admin Dose 650 MG; Start 02/26/17 at 04:00 BELKIS CHAVEZ Feb 26, 2017 06:42
[2017-02-26 07:38] LABS: ABNORMAL IP MESSAGE 1; BASOPHILS % 0.4 % (0.0-2.0); EOSINOPHILS # 0.1 10^3/ul (0.0-0.5); EOSINOPHILS % 1.5 % (0.0-7.0); HEMATOCRIT 34.5 % (37.0-47.0); LYMPHOCYTES # 2.1 10^3/ul (0.8-2.9); LYMPHOCYTES % 39.5 % (15.0-51.0); MEAN CORPUSCULAR HEMOGLOBIN 26.8 pg (29.0-33.0); MEAN CORPUSCULAR HGB CONC 31.9 g/dl (32.0-37.0); MEAN CORPUSCULAR VOLUME 84.1 fl (82.0-101.0); MEAN PLATELET VOLUME 13.3 fl (7.4-10.4); MONOCYTE # 0.5 10^3/ul (0.3-0.9); MONOCYTES % 9.5 % (0.0-11.0); NEUTROPHIL # 2.6 10^3/ul (1.6-7.5); NEUTROPHILS % 48.9 % (39.0-77.0); PLATELET COUNT 140 10^3/UL (140-415); RED CELL DISTRIBUTION WIDTH 16.2 % (11.5-14.5); WHITE BLOOD COUNT 5.3 10^3/ul (4.8-10.8)
[2017-02-26 07:40] LABS: CREATINE KINASE 90 IU/L (23-200)
[2017-02-26 07:47] LABS: POSITIVE DIFF @See below
[2017-02-26 07:53] LABS: CK-MB 0.76 ng/ml (0.0-2.4)
[2017-02-26 07:55] LABS: ALBUMIN 3.6 g/dl (3.3-4.9); ALBUMIN/GLOBULIN RATIO 1.2; BILIRUBIN,INDIRECT 0.5 mg/dl (0-1.1); BILIRUBIN,TOTAL 0.5 mg/dl (0.2-1.3); CALCIUM 9.1 mg/dl (8.4-10.2); CREATININE 0.78 mg/dl (0.44-1.00); MAGNESIUM 1.9 mg/dl (1.7-2.5); POTASSIUM 4.2 mmol/L (3.5-5.1); TOTAL PROTEIN 6.6 g/dl (6.1-8.1)
[2017-02-26 07:56] LABS: TROPONIN-I < 0.012 ng/ml (0.00-0.12)
--- NOTE | 2017-02-26 08:07 | CONS ---
Date/Time of Note Date/Time of Note DATE: 02/26/17 TIME: 08:02 Assessment/Plan Assessment/Plan Chief Complaint/Hosp Course 1) Chest pain, noncardiac 2) HTN out of control 3) SOB likely due to above 4) CHF, chronic systolic and diastolic 5) no gross fluid overload 6) HLP 7) No dynamic EKG changes 8) Negative biomarkers Problems: Additional Assessment/Plan 1) dc NTP 2) start Imdur 30 mg po daily 3) add amlodipine 5 daily 4) continue beta analilia and ISMA 5) No other cardiac studies at this time Consultation Date/Type/Reason Admit Date/Time Feb 26, 2017 at 01:33 Date of Consultation: Feb 26, 2017 Type of Consultation: cv Reason for Consultation chest pain Referring Provider: BELKIS CHAVEZ Hx of Present Illness admitted with chest pain, mid chest, localized, sharp, not exertional, worse with inspiration and with touch, also SOB yesterday, relieved now, chest pain still present, 04/07, permanent, no syncope or near syncope, no palpitations, no exertional chest pain Eyes: no complaints ENT: no complaints Respiratory: no complaints Cardiovascular: chest pain Gastrointestinal: no complaints Musculoskeletal: no complaints Skin: no complaints Neurologic: no complaints Endocrine: no complaints Lymphatic: no complaints Past Medical History Medical History: high cholesterol, hypertension Past Surgical History Past Surgical Hx: other Family History Significant Family History: hypertension Social History Alcohol Use: none Smoking Status: Never smoker Drug Use: none Exam/Review of Systems Vital Signs Vitals Vital Signs Date Time Temp Pulse Resp B/P Pulse Ox O2 Delivery O2 Flow Rate FiO2 02/26/17 07:49 98.4 58 19 146/69 99 02/26/17 01:59 Room Air Intake and Output 02/25/17 02/25/17 02/26/17 15:00 23:00 07:00 Intake Total 200 ml Balance 200 ml Exam Constitutional: alert, oriented Head: atraumatic, normocephalic Neck: supple Respiratory: clear to auscultation Cardiovascular: regular rate and rhythm Gastrointestinal: soft Musculoskeletal: nl extremities to inspection Extremities: normal pulses Neurological: MANAGER IN TRAINING II-XII intact Results Result Diagram: 02/26/17 0636 02/26/17 0636 Results 24 hrs Laboratory Tests Test 02/25/17 23:30 02/26/17 06:36 White Blood Count 5.4 5.3 Red Blood Count 4.44 4.10 L Hemoglobin 11.8 L 11.0 L Hematocrit 38.9 34.5 L Mean Corpuscular Volume 87.6 84.1 Mean Corpuscular Hemoglobin 26.6 L 26.8 L Mean Corpuscular Hemoglobin Concent 30.3 L 31.9 L Red Cell Distribution Width 16.3 H 16.2 H Platelet Count 133 L 140 Mean Platelet Volume 12.7 H 13.3 H Neutrophils % 52.1 48.9 Lymphocytes % 38.3 39.5 Monocytes % 7.6 9.5 Eosinophils % 1.1 1.5 Basophils % 0.7 0.4 Nucleated Red Blood Cells % 0.0 0.0 Neutrophils # 2.8 2.6 Lymphocytes # 2.1 2.1 Monocytes # 0.4 0.5 Eosinophils # 0.1 0.1 Basophils # 0.0 0.0 Nucleated Red Blood Cells # 0.0 0.0 D-Dimer 242.26 D-Dimer Comment Sodium Level 142 143 Potassium Level 3.8 4.2 Chloride Level 105 107 Carbon Dioxide Level 25 29 Anion Gap 16 11 Blood Urea Nitrogen 17 15 Creatinine 0.90 0.78 Glucose Level 100 95 Calcium Level 9.6 9.1 Troponin I < 0.012 < 0.012 Magnesium Level 1.9 Total Bilirubin 0.5 Direct Bilirubin 0.00 Indirect Bilirubin 0.5 Aspartate Amino Transf (AST/SGOT) 23 Alanine Aminotransferase (ALT/SGPT) 34 Alkaline Phosphatase 44 Creatine Kinase 90 Creatine Kinase Index 0.8 Creatinine Kinase MB (Mass) 0.76 Total Protein 6.6 Albumin 3.6 Globulin 3.00 Albumin/Globulin Ratio 1.20 Medications Medications Current Medications Aspirin (Halfprin) 81 mg DAILY PO ; Start 02/26/17 at 09:00 Carvedilol (Coreg) 12.5 mg BID PO ; Start 02/26/17 at 09:00 Furosemide (Lasix) 20 mg DAILY PO ; Start 02/26/17 at 09:00 Lisinopril (Zestril) 10 mg BID PO ; Start 02/26/17 at 09:00 Miscellaneous Information 10 mg QHS PO ; Start 02/26/17 at 21:00; Status UNV Ondansetron HCl (Zofran Tab) 4 mg Q6H PRN PO NAUSEA AND/OR VOMITING; Start 02/26/17 at 03:00 Nitroglycerin (Nitroglycerin (Sl Tab) 0.4 Mg) 1 tab Q5M PRN SL CHEST PAIN; Start 02/26/17 at 03:00 Morphine Sulfate (morphine) 2 mg Q4H PRN IV PAIN LEVEL 7-10; Start 02/26/17 at 03:00 Docusate Sodium (Colace) 100 mg Q12H PRN PO CONSTIPATION; Start 02/26/17 at 03: 00 Bisacodyl (Dulcolax) 5 mg DAILY PRN PO CONSTIPATION; Start 02/26/17 at 03:00 Acetaminophen (Tylenol Tab) 650 mg Q4H PRN PO PAIN AND OR ELEVATED TEMP Last administered on 02/26/17t 03:51; Admin Dose 650 MG; Start 02/26/17 at 04:00 Procedures Procedures EKG: SR,nonspecific ST changes CXR: no CHF MONE YOUNGER MD Feb 26, 2017 08:07
[2017-02-26] MEDS: ISOSORBIDE MONONITRATE(SR)30 MG TAB PO SCH (08:26)
[2017-02-26] MEDS: AMLODIPINE 5 MG TAB GTB SCH (08:26)
[2017-02-26] MEDS: FUROSEMIDE 20 MG TAB PO SCH (08:27)
[2017-02-26] MEDS: ASPIRIN (EC) 81 MG TAB PO SCH (08:27)
[2017-02-26] MEDS: LISINOPRIL 10 MG TAB PO SCH ×2 (08:27→22:07)
[2017-02-26 11:41] LABS: CREATINE KINASE 94 IU/L (23-200)
[2017-02-26 11:50] LABS: CK-MB 0.69 ng/ml (0.0-2.4)
[2017-02-26 11:52] LABS: TROPONIN-I < 0.012 ng/ml (0.00-0.12)
--- NOTE | 2017-02-26 14:13 | QN ---
Documentation Comment Patient was examined at bedside. She is doing overall well. However, she continues to have on and off chest pain which she scale 2 out of 10 which was 6 out of 10 before. Cardiology had evaluated the patient and no further cardiac intervention indicated. She has been started on Imdur and amlodipine today. Her chest pain etiology is mostly noncardiac in origin. Patient had negative serial troponins, EKG negative for acute ischemia. Currently echocardiogram results are pending. I discussed this with the patient and recommended that she can be discharged today with outpatient follow-up. However, she reported that her chest pain keeps coming back and she feels like not stable to be discharged at this time. At this time, I will also order a TSH, A1c, fasting lipid panel, B12, and folate level to a.m. labs. We will monitor her blood pressure as there is no new medications added. If blood pressure remained stable and no further chest pain, patient can be discharged in a.m. with outpatient follow-up. Patient was seen in collaboration with . ABBEY WARNER NP Feb 26, 2017 14:13
[2017-02-26] MEDS ORDERED: NON-FORMULARY/PATIENT OWN MED (Simvastatin 10 MG) PO SCH (21:00)
[2017-02-26] MEDS ORDERED: ATORVASTATIN 10 MG TAB PO SCH (21:00)
[2017-02-27] VITALS (8 sets, daily range): BP systolic 130–177; BP diastolic 68–83; PULSE 53–75; RESP 16–17
[2017-02-27] MEDS: ACETAMINOPHEN 325 MG TAB PO PRN ×2 (00:31→12:05)
[2017-02-27] MEDS: ASPIRIN (EC) 81 MG TAB PO SCH (08:49)
[2017-02-27] MEDS: ISOSORBIDE MONONITRATE(SR)30 MG TAB PO SCH (08:49)
[2017-02-27] MEDS: AMLODIPINE 5 MG TAB GTB SCH (08:49)
[2017-02-27] MEDS: LISINOPRIL 10 MG TAB PO SCH (08:49)
[2017-02-27] MEDS: FUROSEMIDE 20 MG TAB PO SCH (08:49)
--- NOTE | 2017-02-27 13:16 | DS ---
Date/Time of Note Date/Time of Note DATE: 02/27/17 TIME: 13:13 Discharge Summary Admission/Discharge Info Admit Date/Time Feb 26, 2017 at 01:33 Discharge Date/Time February 27, 2017 Discharge Diagnosis Hypertensive cardiomyopathy with systolic and diastolic CHF; obesity; noncardiac chest pain Patient Condition: Good Consults Cardiology Procedures EKG; rule out protocol; Hx of Present Illness Chief complaint: Chest pain The patient is a 66-year-old female, presenting to the ER because of substernal chest pain that began about 9 PM, 10/05, radiating down to her left arm, worse with walking. She had similar symptoms previously, was last hospitalized in November 2016. She denies dyspnea, abdominal pain, vomiting, dysuria, diarrhea. She does not smoke, has increased stress at home. She does state that she has been under stress lately secondary to her daughter's clinical conditions. Hospital Course [place] 66-year-old -[place] female admitted with chest pain and shortness of breath. She is ruled out has been seen in cardiology consultation. Cardiology is of the opinion that she would be best treated by maximizing her medical therapy and the addition of Imdur or isosorbide mononitrate. She is now stable for discharge in improved condition as compared to the time of admission she has no known communicable diseases she is not a hazard to herself or others rehabilitation potential is good she is competent for medical decisions Home Meds Active Scripts Lisinopril* (Lisinopril*) 10 Mg Tablet, 10 MG PO BID, #60 TAB 2 Refills Prov:JASON GONZALEZMeryl 12/26/16 Reported Medications Carvedilol* (Carvedilol*) 12.5 Mg Tablet, 12.5 MG PO BID, #60 TAB 02/25/17 Aspirin Ec (Aspir 81) 81 Mg Tablet.dr, 81 MG PO DAILY, #30 TAB 04/24/16 Simvastatin (Simvastatin) 10 Mg Tablet, 10 MG PO QHS, #30 TAB 04/24/16 Furosemide* (Furosemide*) 20 Mg Tablet, 20 MG PO DAILY, #60 TAB 04/24/16 Discontinued Reported Medications Carvedilol* (Carvedilol*) 6.25 Mg Tablet, 6.25 MG PO BID, #60 TAB 04/24/16 Discontinued Scripts Naproxen* (Naprosyn*) 500 Mg Tablet, 500 MG PO BID Y for PAIN AND/OR INFLAMMATION, #30 TAB Prov:CARLINE CRABTREE MD 12/28/16 Magnesium Hydroxide* (Conte' MOM*) 30 Ml Susp, 30 ML PO DAILY Y for CONSTIPATION, #1 BOTTLE Prov:JASON GONZALEZ 12/26/16 Follow-up Plan With primary care physician Dr. Carrillo in 1 week to titrate up on her heart medications Primary Care Provider Marty Carrillo MD Time spent on discharge: > 30 minutes DOMINIQUE WILHELM MD Feb 27, 2017 13:16
[2017-02-27] MEDS ORDERED: ISOS30TA5 PO (13:18)
[2017-02-27] MEDS ORDERED: LISI10TA2 PO (13:18)
[2017-02-27] MEDS ORDERED: AMLO-145 GTB (13:18)
--- NOTE | 2017-02-27 13:19 | PDOCDIS ---
Discharge Instructions DIAGNOSIS Discharge Diagnosis Hypertensive cardiomyopathy with systolic and diastolic CHF; obesity; noncardiac chest pain CONDITION Patient Condition: Good HOME CARE INSTRUCTIONS: Special Diet: CARDIAC ACTIVITY: Activity Restrictions: Slowly Increase Activity Do not operate Machinery Do not operate Power Tool Avoid Heavy Housework FOLLOW UP/APPOINTMENTS Follow-up Plan With primary care physician Dr. Carrillo in 1 week to titrate up on her heart medications DOMINIQUE WILHELM MD Feb 27, 2017 13:19
== END 2017-02-27 14:34 | disposition home or self-care (01) | DRG 313 ==
LOC: E/R 22:41 → MS4 02-26 01:33
PROVIDERS: ADMIT Family Medicine; ATTEND Family Medicine
DX: R07.89 Other chest pain (principal); I11.0 Hypertensive heart disease with heart failure; I50.42 Chronic combined systolic (congestive) and diastolic (congestive) heart failure; E78.5 Hyperlipidemia, unspecified; M79.602 Pain in left arm; D64.9 Anemia, unspecified; E66.9 Obesity, unspecified; Z68.28 Body mass index [BMI] 28.0-28.9, adult; Z90.11 Acquired absence of right breast and nipple
CPT/HCPCS: 36415; 71010; 80048; 80053; 82550; 82553; 83735; 84484; 85025; 85378; 93005; 96372

== ENCOUNTER 2017-04-05 22:54 | Inpatient (IN) | END 2017-04-07 19:04 | disposition home or self-care (01) | DRG 206 ==

== ENCOUNTER 2017-05-22 20:41 | Emergency (ER) | END 2017-05-22 23:49 | disposition home or self-care (01) ==

== ENCOUNTER 2017-06-09 13:02 | Emergency (ER) | END 2017-06-09 15:54 | disposition home or self-care (01) ==

== ENCOUNTER 2017-08-25 20:17 | Emergency (ER) | END 2017-08-26 03:15 | disposition home or self-care (01) ==

== ENCOUNTER 2018-01-03 19:25 | Observation (INO) | END 2018-01-04 14:38 | disposition home or self-care (01) ==

== ENCOUNTER 2018-01-24 12:51 | Emergency (ER) | END 2018-01-24 16:12 | disposition home or self-care (01) ==

== ENCOUNTER 2019-01-26 15:26 | Observation (INO) | payer OTHER ==
[~2019-01-26] VITALS: Ht 162.6 cm; Wt 79.4 kg
[~2019-01-26 15:26] MED LIST changes: +ACET-141 PO; -ASPI-535 PO; +ASPI-817 PO; +ATOR20TA38 PO; +CARV12.579 PO; -CARV6.2579 PO; +HYDR-3601 PO; +ISOS30TA67 PO; +LATA2.5D2 BOTH EYES; -LISI10TA2 PO; +LOSA50TA14 PO; +MELO15TA30 PO; +METF500T24 PO; -NAPR-260 PO; +NAPR-985 PO; -SIMV10TA6 PO; +TIMO5DRO30 BOTH EYES; -UDMOM PO
[2019-01-26] MEDS ORDERED: ASPIRIN 325 MG TAB PO STA (16:35)
[2019-01-26] MEDS ORDERED: morphine 4 MG/ML VIAL IV STA (18:40)
[2019-01-26] MEDS ORDERED: ONDANSETRON 4 MG INJ IV STA (18:40)
[2019-01-26] MEDS ORDERED: ONDANSETRON 4 MG INJ IV PRN ×2 (19:30→20:00)
[2019-01-26] MEDS ORDERED: ACETAMINOPHEN 325 MG TAB PO PRN ×2 (19:30→20:00)
[2019-01-26] MEDS ORDERED: NITROGLYCERIN (SL) 0.4 MG TAB SL PRN (20:00)
[2019-01-26] MEDS ORDERED: DOCUSATE SODIUM 100 MG CAP PO PRN (20:00)
[2019-01-26] MEDS ORDERED: BISACODYL (EC) 5 MG TAB PO PRN (20:00)
[2019-01-26] MEDS ORDERED: ACETAMINOPHEN 500 MG TAB PO PRN (20:00)
[2019-01-26] MEDS ORDERED: morphine 2 MG INJ IV PRN (20:00)
[2019-01-26] MEDS ORDERED: NACL 0.9% 3 ML SYG IV SCH (20:00)
[2019-01-26] MEDS ORDERED: GLUCAGON 1 MG INJ IM PRN (20:30)
[2019-01-26] MEDS ORDERED: GLUCOSE GEL 15 GRAM TUBE PO PRN ×2 (20:30)
[2019-01-26] MEDS ORDERED: DEXTROSE 50% 50 ML SYRINGE IV PRN ×2 (20:30)
[2019-01-26] MEDS ORDERED: GLUCOSE GEL 15 GRAM TUBE BUCCAL PRN (20:30)
[2019-01-26] MEDS: TIMOLOL 0.5% 5 ML OPH BOTH EYES SCH (21:00)
[2019-01-26] MEDS: INSULIN ASPART [NOVOLOG] 3 ML PEN SC SCH (21:00)
[2019-01-26] MEDS: ATORVASTATIN 20 MG TAB PO SCH (22:49)
[2019-01-26] MEDS: LATANOPROST 0.005% 2.5 ML OPH BOTH EYES SCH (22:50)
[2019-01-26] MEDS: HEPARIN 5,000 UNIT/1 ML VIAL SC SCH (22:50)
[2019-01-27] VITALS: BP 153/73; PULSE 70; RESP 19
[2019-01-27] MEDS: INSULIN ASPART [NOVOLOG] 3 ML PEN SC SCH ×6 (01:00→21:00)
[2019-01-27 01:54] VITALS: Ht 162.6 cm; Wt 79.4 kg
[2019-01-27] MEDS ORDERED: ACCU-CHEK XX SCH (02:00)
[2019-01-27] MEDS: ACCU-CHEK XX SCH (02:44)
[2019-01-27] MEDS ORDERED: KETOROLAC 30 MG INJ IV ONE (03:10)
[2019-01-27 04:00] VITALS: BP 128/64; PULSE 64; RESP 18
[2019-01-27] MEDS: HEPARIN 5,000 UNIT/1 ML VIAL SC SCH (06:02)
[2019-01-27 07:32] VITALS: BP 135/68; PULSE 58; RESP 18
[2019-01-27] MEDS: ISOSORBIDE MONONITRATE(SR)30 MG TAB PO SCH (08:26)
[2019-01-27] MEDS: ASPIRIN (EC) 81 MG TAB PO SCH (08:27)
[2019-01-27] MEDS: LOSARTAN 50 MG TAB PO SCH (08:27)
[2019-01-27] MEDS: FUROSEMIDE 20 MG TAB PO SCH (08:27)
[2019-01-27] MEDS: TIMOLOL 0.5% 5 ML OPH BOTH EYES SCH ×2 (09:00→21:14)
[2019-01-27 11:49] VITALS: BP 113/69; PULSE 56; RESP 16
[2019-01-27] MEDS ORDERED: REGADENOSON 0.4 MG/5 ML SYG ONE (13:24)
[2019-01-27 15:05] VITALS: BP 152/93; PULSE 60; RESP 16
[2019-01-27 20:00] VITALS: BP 160/75; PULSE 65; RESP 19
[2019-01-27] MEDS ORDERED: ENOXAPARIN 40 MG/0.4 ML SYG SC SCH (21:00)
[2019-01-27] MEDS: LATANOPROST 0.005% 2.5 ML OPH BOTH EYES SCH (21:00)
[2019-01-27] MEDS: ATORVASTATIN 20 MG TAB PO SCH (21:14)
[2019-01-28] VITALS: BP 138/63; PULSE 60; RESP 19
[2019-01-28] MEDS: ACCU-CHEK XX SCH (02:00)
[2019-01-28] MEDS ORDERED: ACCU-CHEK XX SCH (02:00)
[2019-01-28 04:00] VITALS: BP 131/72; PULSE 59; RESP 18
[2019-01-28 07:37] VITALS: BP 147/70; PULSE 88; RESP 18
[2019-01-28] MEDS: INSULIN ASPART [NOVOLOG] 3 ML PEN SC SCH ×2 (07:55→11:50)
[2019-01-28] MEDS: FUROSEMIDE 20 MG TAB PO SCH (08:34)
[2019-01-28] MEDS: ASPIRIN (EC) 81 MG TAB PO SCH (08:35)
[2019-01-28] MEDS: LOSARTAN 50 MG TAB PO SCH (08:35)
[2019-01-28] MEDS: ISOSORBIDE MONONITRATE(SR)30 MG TAB PO SCH (08:35)
[2019-01-28] MEDS: TIMOLOL 0.5% 5 ML OPH BOTH EYES SCH (08:35)
[2019-01-28 11:09] VITALS: BP 146/69; PULSE 59; RESP 18
== END 2019-01-28 14:35 | disposition home or self-care (01) ==
LOC: E/R 15:26 → TEL 19:03
PROVIDERS: ADMIT Internal Medicine; ATTEND Family Medicine
DX: R07.9 Chest pain, unspecified (principal); I25.5 Ischemic cardiomyopathy; E78.5 Hyperlipidemia, unspecified; I10 Essential (primary) hypertension; Z85.3 Personal history of malignant neoplasm of breast; Z79.84 Long term (current) use of oral hypoglycemic drugs; H40.9 Unspecified glaucoma; R06.02 Shortness of breath
CPT/HCPCS: 71045; 78451; 80048; 80053; 80061; 82550; 82553; 82962; 83036; 83735; 83880; 84443; 84484; 85025; 85610; 85730; 93005; 93306; 96374; 96375; 99285; A9500; G0378; J1644; J1650; J1815; J1885; J2270; J2405; J2785